=== PATIENT | female | born 1975 ===

== ENCOUNTER 2020-05-01 12:23 | Outpatient (REF) | payer OTHER, SELFPAY | END 2020-05-01 12:24 | disposition home or self-care (01) | LOC: HO.LAB 12:23 | PROVIDERS: PCP Internal Medicine; Visit Provider Internal Medicine | DX: Z20.822 Contact with and (suspected) exposure to COVID-19 (principal) | CPT/HCPCS: 36415; C9803; U0003 ==

== ENCOUNTER 2020-07-24 11:11 | Outpatient (REF) | payer OTHER, SELFPAY ==
--- NOTE | ~2020-07-24 | XR_ITS ---
EXAMINATION: XR CHEST CLINICAL INFORMATION: Covid infection COMPARISON: None TECHNIQUE: 2 views of the chest were obtained. FINDINGS: No significant abnormality is noted involving the heart, lungs, mediastinum, bony thorax or soft tissues. XR/XR chest 2V IMPRESSION: Unremarkable examination.
--- NOTE | 2020-07-24 11:36 | ECG_ITS ---
Test Reason : SOB Blood Pressure : / mmHG Vent. Rate : 070 BPM Atrial Rate : 070 BPM P-R Int : 130 ms QRS Dur : 092 ms QT Int : 392 ms P-R-T Axes : 016 034 037 degrees QTc Int : 423 ms Normal sinus rhythm Normal ECG When compared with ECG of 09-FEB-2018 13:16, No significant change was found Referred By: Jhonny Carvalho Electronically Signed By:Scott Cruz
[2020-07-24 12:04] LABS: MANUAL DIFF FLAG NO
[2020-07-24 12:13] LABS: Basophils Percent Auto 0.7 % (0-2); Eosinophils Absolute Auto 0.1 X10*3/uL (0.0-0.4); Eosinophils Percent Auto 2.5 % (0-4); Hemoglobin 11.7 g/dl (12.0-16.0); Imm Gran Abs Auto 0.03 X10*3/uL (0.00-0.03); Imm Gran Pct Auto 0.5 % (0.0-0.4); Lymphocytes Absolute Auto 1.4 X10*3/uL (1.2-4.9); Lymphocytes Percent Auto 24.3 % (20-40); Mean Corpuscular HGB Conc 32.5 g/dl (31.0-35.0); Mean Corpuscular Hemoglobin 31.8 pg (27.0-33.0); Mean Corpuscular Volume 97.8 fL (80-98); Mean Platelet Volume 10.1 fL (9.4-12.3); Monocytes Absolute Auto 0.3 X10*3/uL (0.1-1.2); Monocytes Percent Auto 5.7 % (2-11); Neutrophils Absolute Auto 3.7 X10*3/uL (2.0-8.3); Neutrophils Percent Auto 66.3 % (45-73); Platelet Count 230 X10*3/uL (160-400); Red Blood Count 3.68 X10*6/uL (4.20-5.50); Red Cell Distribution Width 12.4 % (11.0-16.0); White Blood Count 5.6 X10*3/uL (4.8-10.8)
[2020-07-24 13:51] LABS: Anion Gap 11 (12-20); Blood Urea Nitrogen 14 mg/dL (9-16); Calcium 9.2 mg/dL (8.4-10.2); Carbon Dioxide 26 mmol/L (22-29); Chloride 106 mmol/L (96-108); Estimated Glomerular Filt Rate > 60; Glucose Random 104 mg/dL (60-115); Potassium 4.4 mmol/L (3.3-5.1); Sodium 139 mmol/L (135-145)
[2020-07-24 14:14] LABS: Thyroid Stimulating Hormone 0.89 uIU/mL (0.32-4.0)
== END 2020-07-24 11:12 | disposition home or self-care (01) ==
LOC: HO.LAB 11:11
PROVIDERS: PCP Internal Medicine; Visit Provider Internal Medicine
DX: Z00.00 Encounter for general adult medical examination without abnormal findings (principal); R06.02 Shortness of breath; E03.9 Hypothyroidism, unspecified; R51.9 Headache, unspecified; U07.1 COVID-19
CPT/HCPCS: 36415; 71046; 80048; 84443; 85025; 93005

== ENCOUNTER → 2020-08-14 11:39 | Outpatient (BNVA) | payer OTHER, SELFPAY | PROVIDERS: PCP Internal Medicine; Visit Provider Advanced Practice Midwife ==

== ENCOUNTER 2020-08-27 10:38 | Outpatient (REF) | payer OTHER, SELFPAY ==
[2020-08-28 08:57] LABS: BV Int Neg Control Negative (Negative); BV Int Pos Control Positive (Positive)
[2020-08-28 09:00] LABS: CT PCR NOT DETECTED (Not Detect.); NG PCR NOT DETECTED (Not Detect.)
== END 2020-08-27 10:39 | disposition home or self-care (01) ==
LOC: HO.LAB 10:38
PROVIDERS: PCP Internal Medicine; Visit Provider Advanced Practice Midwife
DX: Z01.419 Encounter for gynecological examination (general) (routine) without abnormal findings (principal); Z11.3 Encounter for screening for infections with a predominantly sexual mode of transmission; R10.2 Pelvic and perineal pain; K59.00 Constipation, unspecified; B00.9 Herpesviral infection, unspecified; Z20.2 Contact with and (suspected) exposure to infections with a predominantly sexual mode of transmission
CPT/HCPCS: 87480; 87491; 87510; 87591; 87660

== ENCOUNTER 2020-09-04 15:54 | Outpatient (REF) | payer OTHER, SELFPAY ==
--- NOTE | ~2020-09-04 | US_ITS ---
EXAMINATION:US pelvic and transvaginal CLINICAL INFORMATION: Reason for Exam N85.2 - Hypertrophy of uterus COMPARISON: No prior ultrasound available. LMP: 08/05/2020 FINDINGS: UTERUS: The uterus is anteverted. Size: 8.4 x 4.2 x 6.4 cm. Uterine mass: Small intramural uterine mass likely fibroid 7 x 5 x 9 mm. Cervix: Grossly unremarkable. Endometrium: No ultrasound evidence of endometrial lesion. endometrial thickness measures 1.1 cm ADNEXA: Normal Right ovary: Normal in size. Cystic structure in the right ovary 2.1 cm likely dominant follicle. Left ovary: Normal in size. Doppler exam: Normal Doppler flow identified in both ovaries. FREE FLUID: Trace amount of free fluid. OTHER FINDINGS: None US/US pelvic and transvaginal IMPRESSION: Small intramural subcentimeter mass likely fibroid. 2.1 cm cystic structure in the right ovary most likely physiologic dominant follicle.
--- NOTE | ~2020-09-04 | XR_ITS ---
EXAMINATION: XR CHEST CLINICAL INFORMATION: COVID-19. COMPARISON: Most recent chest radiograph dated 07/24/2020. TECHNIQUE: 2 views of the chest were obtained. FINDINGS: The lungs are clear. The cardiomediastinal silhouette is normal in size. There is no pleural effusion or pneumothorax. No acute osseous abnormality. XR/XR chest 2V IMPRESSION: No acute cardiopulmonary findings.
== END 2020-09-04 15:55 | disposition home or self-care (01) ==
LOC: HO.US 15:54
PROVIDERS: Visit Provider Advanced Practice Midwife
DX: R10.2 Pelvic and perineal pain (principal); N85.2 Hypertrophy of uterus; U07.1 COVID-19
CPT/HCPCS: 71046; 76830; 76856

== ENCOUNTER → 2020-09-24 10:03 | Outpatient (BNVA) | payer OTHER, SELFPAY | PROVIDERS: PCP Internal Medicine; Visit Provider Advanced Practice Midwife ==

== ENCOUNTER 2020-11-24 12:35 | Outpatient (REF) | payer OTHER, SELFPAY ==
--- NOTE | ~2020-11-24 | US_ITS ---
EXAMINATION: US ABDOMEN COMPLETE CLINICAL INFORMATION: Abdominal pain.. COMPARISON: None TECHNIQUE: Real-time imaging of the abdominal viscera. FINDINGS: PANCREAS: Normal. ABDOMINAL AORTA: The proximal, mid, and distal segments are normal in caliber. INFERIOR VENA CAVA: Visualized portions are normal. LIVER: The liver is normal in size. The liver contour is normal. Parenchymal echogenicity is normal. There is an anechoic cyst with septations in the left hepatic lobe measuring 0.8 x 0.6 x 0.8 cm. A small cyst in the right hepatic lobe measures 1.3 x 0.9 x 0.7 cm.. There is no intrahepatic biliary duct dilatation seen. GALLBLADDER: Normal. The gallbladder is physiologically distended without evidence of stones, sludge, polyps, wall thickening or pericholecystic fluid. COMMON BILE DUCT: Normal in caliber measuring 0.5 cm in diameter. RIGHT KIDNEY: There is mild hydronephrosis.. No renal calculi or focal parenchymal lesions. The kidney measures 12.1 cm in maximum dimension. LEFT KIDNEY: Normal. No hydronephrosis. No renal calculi or focal parenchymal lesions. The kidney measures 11.1 cm in maximum dimension. SPLEEN: Normal. The spleen measures 11.5 cm in maximum dimension. FREE FLUID: None. Limited imaging through the pelvis reveals a normal left ureteral jet. The right ureteral jet is not seen. US/US abdomen complete IMPRESSION: There is a left hepatic lobe cyst with septation and a simple right hepatic lobe cyst. No solid lesions seen. There is mild right hydronephrosis of unknown etiology with absent right ureteral jet in the bladder. Rest of the abdominal ultrasound is unremarkable.
--- NOTE | ~2020-11-24 | XR_ITS ---
EXAMINATION: XR ABDOMEN KUB CLINICAL INDICATION: Abdominal pain COMPARISON: None TECHNIQUE: AP view of the abdomen. FINDINGS: The bowel gas pattern is normal with no evidence of ileus or obstruction. There is a moderate volume of stool throughout the colon. No unusual soft tissue calcifications are noted. The bones are unremarkable. XR/XR KUB IMPRESSION: Unremarkable examination.
[2020-11-24 14:16] LABS: MANUAL DIFF FLAG NO
[2020-11-24 14:30] LABS: Basophils Percent Auto 0.5 % (0-2); Eosinophils Absolute Auto 0.2 X10*3/uL (0.0-0.4); Eosinophils Percent Auto 3.8 % (0-4); Hematocrit 36.6 % (37-47); Hemoglobin 11.7 g/dl (12.0-16.0); Imm Gran Abs Auto 0.03 X10*3/uL (0.00-0.03); Imm Gran Pct Auto 0.5 % (0.0-0.4); Lymphocytes Absolute Auto 1.5 X10*3/uL (1.2-4.9); Lymphocytes Percent Auto 26.9 % (20-40); Mean Corpuscular Hemoglobin 30.7 pg (27.0-33.0); Mean Corpuscular Volume 96.1 fL (80-98); Mean Platelet Volume 10.4 fL (9.4-12.3); Monocytes Absolute Auto 0.3 X10*3/uL (0.1-1.2); Monocytes Percent Auto 5.6 % (2-11); Neutrophils Absolute Auto 3.5 X10*3/uL (2.0-8.3); Neutrophils Percent Auto 62.7 % (45-73); Platelet Count 252 X10*3/uL (160-400); Red Blood Count 3.81 X10*6/uL (4.20-5.50); Red Cell Distribution Width 12.2 % (11.0-16.0); White Blood Count 5.5 X10*3/uL (4.8-10.8)
[2020-11-24 14:40] LABS: Alanine Aminotransferase 10 U/L (0-31); Alkaline Phosphatase 57 U/L (39-117); Anion Gap 11 (12-20); Aspartate Amino Transferase 11 U/L (5-31); Bilirubin Total 0.5 mg/dL (0.0-1.0); Blood Urea Nitrogen 11 mg/dL (9-16); Carbon Dioxide 24 mmol/L (22-29); Chloride 110 mmol/L (96-108); Cholesterol 180 mg/dL; Estimated Glomerular Filt Rate > 60; Glucose Fasting 102 mg/dL (60-99); HDL Cholesterol 45 mg/dL; LDL Cholesterol Calculated 113 mg/dl; Potassium 4.3 mmol/L (3.3-5.1); Sodium 141 mmol/L (135-145); Total Protein 6.5 g/dL (6.5-8.0); Triglycerides 113 mg/dL
[2020-11-24 15:00] LABS: Thyroid Stimulating Hormone 1.06 uIU/mL (0.32-4.0)
== END 2020-11-24 12:36 | disposition home or self-care (01) ==
LOC: HO.XRAY 12:35
PROVIDERS: Absent Provider Internal Medicine; PCP Internal Medicine; Visit Provider Nurse Practitioner Family
DX: Z00.00 Encounter for general adult medical examination without abnormal findings (principal); R10.9 Unspecified abdominal pain; E03.9 Hypothyroidism, unspecified; E11.9 Type 2 diabetes mellitus without complications
CPT/HCPCS: 36415; 74018; 76700; 80053; 80061; 84443; 85025

== ENCOUNTER 2021-04-17 13:41 | Outpatient (REF) | payer OTHER, SELFPAY ==
[2021-04-17 13:59] LABS: MANUAL DIFF FLAG NO
[2021-04-17 14:15] LABS: Basophils Percent Auto 0.6 % (0-2); Eosinophils Absolute Auto 0.2 X10*3/uL (0.0-0.4); Eosinophils Percent Auto 4.2 % (0-4); Imm Gran Abs Auto 0.02 X10*3/uL (0.00-0.03); Imm Gran Pct Auto 0.4 % (0.0-0.4); Lymphocytes Absolute Auto 1.4 X10*3/uL (1.2-4.9); Lymphocytes Percent Auto 30.3 % (20-40); Mean Corpuscular HGB Conc 32.4 g/dl (31.0-35.0); Mean Corpuscular Hemoglobin 31.9 pg (27.0-33.0); Mean Corpuscular Volume 98.4 fL (80.0-98.0); Mean Platelet Volume 9.6 fL (9.4-12.3); Monocytes Absolute Auto 0.3 X10*3/uL (0.1-1.2); Monocytes Percent Auto 5.7 % (2-11); Neutrophils Absolute Auto 2.8 x10*3/uL (2.0-8.3); Neutrophils Percent Auto 58.8 % (45-73); Platelet Count 228 X10*3/uL (160-400); Red Blood Count 3.76 X10*6/uL (4.20-5.50); Red Cell Distribution Width 12.3 % (11.0-16.0); White Blood Count 4.7 X10*3/uL (4.8-10.8)
[2021-04-17 14:57] LABS: Alanine Aminotransferase 22 U/L (0-31); Albumin Level 4.1 g/dL (3.5-5.0); Alkaline Phosphatase 64 U/L (39-117); Anion Gap 9 (12-20); Aspartate Amino Transferase 18 U/L (5-31); Bilirubin Total 0.4 mg/dL (0.0-1.0); Blood Urea Nitrogen 15 mg/dL (9-16); Carbon Dioxide 22 mmol/L (22-29); Chloride 111 mmol/L (96-108); Cholesterol 211 mg/dL; Estimated Glomerular Filt Rate > 60; Glucose Fasting 95 mg/dL (60-99); HDL Cholesterol 50 mg/dL; LDL Cholesterol Calculated 148 mg/dl; Sodium 138 mmol/L (135-145); Total Protein 6.8 g/dL (6.5-8.0); Triglycerides 68 mg/dL
[2021-04-17 15:11] LABS: Thyroid Stimulating Hormone 0.86 uIU/mL (0.32-4.0)
== END 2021-04-17 13:42 | disposition home or self-care (01) ==
LOC: HO.LAB 13:41
PROVIDERS: PCP Internal Medicine; Visit Provider Internal Medicine
DX: Z00.00 Encounter for general adult medical examination without abnormal findings (principal); Z13.0 Encounter for screening for diseases of the blood and blood-forming organs and certain disorders involving the immune mechanism; Z13.29 Encounter for screening for other suspected endocrine disorder
CPT/HCPCS: 36415; 80053; 80061; 84443; 85025

== ENCOUNTER → 2021-04-30 13:03 | Outpatient (BNVA) | payer OTHER, SELFPAY | PROVIDERS: PCP Internal Medicine | DX: N20.0 Calculus of kidney (principal) | CPT/HCPCS: 51798; 99202 ==

== ENCOUNTER 2021-06-17 11:58 | Outpatient (REF) | payer OTHER, SELFPAY ==
--- NOTE | ~2021-06-17 | US_ITS ---
EXAMINATION: US RETROPERITONEAL LIMITED (RENAL ONLY) CLINICAL INFORMATION: Calculus of kidney. COMPARISON: X-ray abdomen KUB 11/24/2020. Ultrasound abdomen complete 11/24/2020. Renal ultrasound 07/06/2010. TECHNIQUE: Real-time imaging of the kidneys. FINDINGS: RIGHT KIDNEY: 12.8 x 5.3 x 7.0 cm (SAG x AP x TRV). The kidney is normal in size, contour, and echogenicity. Renal cortical thickness is normal. No calculi or focal parenchymal lesions. There is what appears to be mild pelvocaliectasis, slightly increased from prior. In addition, there is a dilated right renal pelvis present which appears more prominent than previous. No hydronephrosis. LEFT KIDNEY: 10.7 x 4.3 x 5.2 cm (SAG x AP x TRV). The kidney is normal in size, contour, and echogenicity. Renal cortical thickness is normal. No calculi or focal parenchymal lesions. No hydronephrosis. The partially filled bladder appeared unremarkable. Left ureteral jet is demonstrated; right is not. The nonvisualization of the right ureteral jet has been noted in the past. US/US renal BI IMPRESSION: Question of mild right-sided hydronephrosis with increased dilatation of right renal pelvis. The possibility of obstruction cannot be excluded. A CT urogram may be useful for further evaluation. No renal calculi were seen on this study nor were any seen on any prior studies.
== END 2021-06-17 11:59 | disposition home or self-care (01) ==
LOC: HO.US 11:58
DX: N20.0 Calculus of kidney (principal)
CPT/HCPCS: 76775

== ENCOUNTER 2021-11-10 10:00 | Outpatient (RCR) | payer OTHER, SELFPAY ==
[2021-11-05 14:06] VITALS: BP 136/74; PULSE 77
--- NOTE | 2021-11-05 15:14 | MHC.PT.EP ---
[facility] [place] Office [place] [facility] [place] Office [address] Willian Joaquin [address] [phone] F: [phone] F: [phone] F: [phone] F: [phone] Physical Therapy Plan of Care Date of Evaluation: Date of Surgery: Diagnosis: dizziness and giddiness Assessment: 46 y/o female referred to PT with dizziness and giddiness. She has a x of BPPV starting 1 year ago and has had 4 episodes since. Her most recent episode started 2 days ago resulting in room-spinning dizziness and n/v that lasts ~1 minute. It is provoked with rolling in bed and moving her head. Of note, she feels offbalance and 'sore' head. Examination shows normal oculomotor exams, normal cervical AROM, (-) VBI, balance not assessed, and (+) for BPPV in R Melanie Hallpike (sx only; Roll test presented with R PC and L Roll test presented with L AC). Performed Zach for R PC x 3 rolls. Next visit, if her sx have not resolved will perform Semont Maneuver. Recommend PT 3x/week for 4 weeks to address impairments, implement HEP, and optimize functional mobility. Frequency and Duration: The patient will be seen 3x/week for 4 weeks Short Term Goals: I with HEP Care Home Goals: Pt will be (-) for nystagmus of reports of vertigo in all diagnostic directions B to resolutions of BPPV in 4 weeks Tolerate position changes without complaints vertigo to improve safety and return to pre-onset level Pt to be able to functionally move in all planes without provocation of dizziness and return to PLOF in 4 weeks Pt to be educated on sx and indications to return to therapy when needed in 4 weeks Treatment Plan: Modalities to reduce pain, spasms and effusion. Manual therapy to restore motion and function. Therapeutic exercise to improve strength and flexibility. Neuromuscular re-education for posture and balance. Therapeutic activities to return to functional activities of daily living. Electronically signed by: Anabelle Frederick PT Please sign and return to therapist. Thank you for your referral.
[2021-11-10 10:32] LABS: MANUAL DIFF FLAG NO
[2021-11-10 10:48] LABS: Basophils Percent Auto 0.5 % (0-2); Eosinophils Absolute Auto 0.2 X10*3/uL (0.0-0.4); Eosinophils Percent Auto 2.6 % (0-4); Hematocrit 35.4 % (37.0-47.0); Hemoglobin 11.6 g/dl (12.0-16.0); Imm Gran Abs Auto 0.03 X10*3/uL (0.00-0.03); Imm Gran Pct Auto 0.5 % (0.0-0.4); Lymphocytes Absolute Auto 1.2 X10*3/uL (1.2-4.9); Lymphocytes Percent Auto 21.2 % (20-40); Mean Corpuscular HGB Conc 32.8 g/dl (31.0-35.0); Mean Corpuscular Volume 97.8 fL (80.0-98.0); Mean Platelet Volume 9.6 fL (9.4-12.3); Monocytes Absolute Auto 0.3 X10*3/uL (0.1-1.2); Monocytes Percent Auto 5.1 % (2-11); Neutrophils Percent Auto 70.1 % (45-73); Platelet Count 218 X10*3/uL (160-400); Red Blood Count 3.62 X10*6/uL (4.20-5.50); Red Cell Distribution Width 12.8 % (11.0-16.0); White Blood Count 5.7 X10*3/uL (4.8-10.8)
[2021-11-10 11:27] LABS: Alanine Aminotransferase 18 U/L (0-31); Albumin Level 4.2 g/dL (3.5-5.0); Alkaline Phosphatase 65 U/L (39-117); Anion Gap 13 (12-20); Aspartate Amino Transferase 17 U/L (5-31); Bilirubin Total 0.4 mg/dL (0.0-1.0); Blood Urea Nitrogen 14 mg/dL (9-16); Carbon Dioxide 25 mmol/L (22-29); Chloride 105 mmol/L (96-108); Cholesterol 198 mg/dL; Estimated Glomerular Filt Rate > 60; Glucose Fasting 115 mg/dL (60-99); HDL Cholesterol 46 mg/dL; LDL Cholesterol Calculated 133 mg/dl; Potassium 4.3 mmol/L (3.3-5.1); Sodium 139 mmol/L (135-145); Total Protein 6.7 g/dL (6.5-8.0); Triglycerides 96 mg/dL
[2021-11-10 11:51] LABS: Thyroid Stimulating Hormone 1.13 uIU/mL (0.32-4.0)
--- NOTE | 2021-12-29 08:19 | MHC.PT.DC ---
[facility] [place] Office [place] Office [place] Office [address] Willian Joaquin [address] [phone] F: [phone] F: [phone] F: [phone] F: [phone] Physical Therapy Discharge Report Diagnosis: dizziness and giddiness Date of Surgery: Date of Evaluation: 11/05/21 Date of Discharge: 12/29/21 Treatments to Date: 3 Cancellations to Date: 0 No Shows to Date: Discharge Status: Achieved Goals Improved Function Discharge Summary: Last session, her dizziness had resolved and she tested negative for BPPV with balance WNL. D/c at this time and re-educated pt on when to return to PT in case of recurrence of vertigo. Electronically signed by: Anabelle Frederick PT Please sign and return to therapist. Thank you for your referral.
== END 2021-12-29 08:19 | disposition home or self-care (01) ==
LOC: HO.PT 10:00
PROVIDERS: Visit Provider Internal Medicine
DX: R42 Dizziness and giddiness (principal)
CPT/HCPCS: 36415; 80053; 80061; 84443; 85025; 95992; 97112; 97161

== ENCOUNTER → 2021-11-16 14:21 | Outpatient (BNVA) | payer OTHER, SELFPAY | PROVIDERS: PCP Internal Medicine; Visit Provider Surgery | DX: R93.0 Abnormal findings on diagnostic imaging of skull and head, not elsewhere classified (principal); L72.8 Other follicular cysts of the skin and subcutaneous tissue | CPT/HCPCS: 99202 ==

== ENCOUNTER 2021-12-14 16:11 | Outpatient (REF) | payer OTHER, SELFPAY ==
[2021-12-18 03:51] LABS: HPV mRNA E6/E7 rflx Not Detected (Not Detected)
== END 2021-12-14 16:12 | disposition home or self-care (01) ==
LOC: HO.LNP 16:11
PROVIDERS: Visit Provider Advanced Practice Midwife
DX: Z01.419 Encounter for gynecological examination (general) (routine) without abnormal findings (principal)
CPT/HCPCS: 87624; 88142

== ENCOUNTER 2022-01-12 10:17 | Outpatient (REF) | payer OTHER, SELFPAY ==
--- NOTE | ~2022-01-12 | MM_ITS ---
EXAMINATION: MM SCREENING DIGITAL BREAST TOMOSYNTHESIS, BILATERAL CLINICAL INFORMATION: Screening. Asymptomatic. The lifetime risk of breast cancer based on the Tyrer-Cuzick Model is 8%. COMPARISON: Mammography: 10/31/2019, 10/25/2019, 07/26/2018, 07/06/2010; targeted left breast ultrasound 10/31/2019 TECHNIQUE: Digital breast tomosynthesis is performed in both the craniocaudal and mediolateral oblique views along with computer-aided detection (CAD). Synthesized 2D images are generated from the tomosynthesis. Additional exaggerated right CC view is provided. FINDINGS: The breasts are heterogeneously dense, which may obscure small masses (ACR BI-RADS breast composition Category c). Parenchymal pattern is similar to prior studies. There is no developing density or architectural abnormality. Small circumscribed cyst mid outer left breast is slightly decreased. No abnormal calcifications. The axilla and skin contours are unremarkable. No significant changes. MM/MM tomosynthesis screening BI IMPRESSION: No mammographic evidence of malignancy. ASSESSMENT: BI-RADS 2: Benign RECOMMENDATION: Routine annual mammography screening. This patient's information was entered into a reminder system with a target due date for their next mammogram.
== END 2022-01-12 10:18 | disposition home or self-care (01) ==
LOC: HO.MAMMO 10:17
PROVIDERS: PCP Internal Medicine; Visit Provider Advanced Practice Midwife
DX: Z12.31 Encounter for screening mammogram for malignant neoplasm of breast (principal)
CPT/HCPCS: 77063; 77067

== ENCOUNTER 2022-05-24 17:07 | Outpatient (REF) | payer OTHER, SELFPAY ==
[2022-05-25 08:59] LABS: Follicle Stimulating Hormone 15.5 mIU/mL; Lutenizing Hormone 9.6 mIU/mL
[2022-05-25 09:14] LABS: Lyme Abs Screen <0.90 index
== END 2022-05-24 17:08 | disposition home or self-care (01) ==
LOC: HO.LAB 17:07
PROVIDERS: PCP Internal Medicine; Visit Provider Internal Medicine
DX: T14.8XXA Other injury of unspecified body region, initial encounter (principal); W57.XXXA Bitten or stung by nonvenomous insect and other nonvenomous arthropods, initial encounter; Z78.0 Asymptomatic menopausal state
CPT/HCPCS: 36415; 83001; 83002; 86617; 86618

== ENCOUNTER 2022-09-09 12:23 | Outpatient (REF) | payer OTHER, SELFPAY ==
[2022-09-09 12:31] LABS: MANUAL DIFF FLAG NO
[2022-09-09 13:37] LABS: Basophils Absolute Auto 0.1 X10*3/uL (0.0-0.2); Basophils Percent Auto 0.7 % (0-2); Eosinophils Absolute Auto 0.1 X10*3/uL (0.0-0.4); Eosinophils Percent Auto 1.2 % (0-4); Hematocrit 34.7 % (37.0-47.0); Hemoglobin 11.3 g/dl (12.0-16.0); Imm Gran Abs Auto 0.02 X10*3/uL (0.00-0.03); Imm Gran Pct Auto 0.3 % (0.0-0.4); Lymphocytes Absolute Auto 1.6 X10*3/uL (1.2-4.9); Lymphocytes Percent Auto 23.7 % (20-40); Mean Corpuscular HGB Conc 32.6 g/dl (31.0-35.0); Mean Corpuscular Hemoglobin 31.2 pg (27.0-33.0); Mean Corpuscular Volume 95.9 fL (80.0-98.0); Mean Platelet Volume 10.4 fL (9.4-12.3); Monocytes Absolute Auto 0.4 X10*3/uL (0.1-1.2); Monocytes Percent Auto 5.2 % (2-11); Neutrophils Absolute Auto 4.7 x10*3/uL (2.0-8.3); Neutrophils Percent Auto 68.9 % (45-73); Platelet Count 211 X10*3/uL (160-400); Red Blood Count 3.62 X10*6/uL (4.20-5.50); Red Cell Distribution Width 12.5 % (11.0-16.0); White Blood Count 6.8 X10*3/uL (4.8-10.8)
[2022-09-09 14:05] LABS: Alanine Aminotransferase 16 U/L (0-31); Albumin Level 4.3 g/dL (3.5-5.0); Alkaline Phosphatase 73 U/L (39-117); Anion Gap 9 (12-20); Aspartate Amino Transferase 16 U/L (5-31); Bilirubin Total 0.5 mg/dL (0.0-1.0); Blood Urea Nitrogen 12 mg/dL (9-16); Calcium 9.2 mg/dL (8.4-10.2); Carbon Dioxide 26 mmol/L (22-29); Chloride 108 mmol/L (96-108); Cholesterol 204 mg/dL; Estimated Glomerular Filt Rate > 60; Glucose Fasting 94 mg/dL (60-99); HDL Cholesterol 49 mg/dL; LDL Cholesterol Calculated 136 mg/dl; Potassium 4.2 mmol/L (3.3-5.1); Sodium 139 mmol/L (135-145); Total Protein 6.8 g/dL (6.5-8.0); Triglycerides 96 mg/dL
[2022-09-09 14:21] LABS: Thyroid Stimulating Hormone 1.15 uIU/mL (0.32-4.0)
== END 2022-09-09 12:24 | disposition home or self-care (01) ==
LOC: HO.LAB 12:23
PROVIDERS: PCP Internal Medicine; Visit Provider Internal Medicine
DX: E78.5 Hyperlipidemia, unspecified (principal); D64.9 Anemia, unspecified; N28.9 Disorder of kidney and ureter, unspecified; E03.9 Hypothyroidism, unspecified
CPT/HCPCS: 36415; 80053; 80061; 84443; 85025

== ENCOUNTER 2022-12-17 15:07 | Outpatient (AMB) | payer OTHER, SELFPAY ==
[2022-12-17 15:08] VITALS: BP 130/84; BMI 26.3
--- NOTE | 2022-12-17 15:08 | MHC.OFFVIS ---
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 She does want to talk however she has some challenges She found out some years ago that her had given her herpes and later found out that he had been cheating and they were . He is currently with a new partner and they are friends now she has decided to forgive him but she can not forget and she has a new , fiance now that she lives with, who was an old friend that she reconnected with, and while she is not particularly worried about any STIs and has been with him for the past year she finds herself unable to sleep at night and feeling like she has some things crawling on her skin and she can not quite relax. She relayed this story in connection with having been given herpes by her so it seemed like there might be connection with that. She also requested a refill on the Valcyclovir She has been doing intermittent fasting and so she eats her healthy meal around 06:00 o'clock she only has coffee during the day when her last coffee is around 02:00 o'clock. She does her workout in the evening on a treadmill along with other exercises and then when she tries to go to bed around 930 even if she is trying to get to bed on time she is lying there with her eyes open and cannot close them for hours. Sometimes she gets up and wants to do things like fold all the laundry in the bedroom. But then when she goes to sleep she still cannot sleep and she is falling asleep at 05:30 in the morning and and she is tired during the day. I suggested counseling or therapy to see if she can explore the issues that are disturbing her sleep but she is not interested in that at this time though she did find speaking about it in this visit like she got something off of her chest. I did suggest changing her exercise timing to earlier in the day and perhaps stopping coffee earlier in the day as well. Additionally I shared that sometimes experts have talked about the benefits of writing down the things that 1 is anxious about in a book and then closing that book before bedtime and acknowledging that 1 can deal with the issues the next day. Additionally discussed the possible benefits of additional magnesium and calcium. She stop drinking milk so she probably needs some extra calcium as well. She had her mammogram last year and they told her that her breasts were dense and so she is concerned about that but she has her next 1 scheduled for January. She says that she talked about all these issues with her primary care provider as well.. Discussed that any other future discussions about what to do about sleep might involve seeking expert advice and sleep studies. Additionally talked about having a screen free bed room. Additionally as per my original suggestion, sometimes speaking with a therapist or counselor can be useful to in helping get to the other side of issues that are worrying us and interfering with sleep. FORMERLY [facility], [facility]–1983 Medical History Renal calculi Liver cyst Anxiety Hypertension Kidney stones Well woman exam with routine gynecological exam Acid reflux Palpitation Abdominal migraine Low back pain Sinusitis COVID-19 Surgical History Hx of cystoscopy History of tubal ligation History of pubovaginal sling Family History Mother No problems noted. Father No problems noted. Social History Housing: House Alcohol intake: current Alcohol intake frequency: holidays/special occasions only Alcohol type: wine Patient Tobacco Use Status: Never used Tobacco e-Cigarette/Vaping Use: Never Used Second Hand Smoke Exposure: No service: No Current occupational status: employed Current occupational exposures/hazards: No Gender identity: Female Cognitive needs: No Hearing needs: No Vision needs: No Female Reproductive History Menstrual Age of Menarche: 13 Duration of menses: 3-5 days Date of last menstrual period: 12/16/22 control method: other (tubal ligation) Total pregnancies: 4 Full term: 4 Number of Living Children: 4 Date of last pap smear: 12/15/21 (negative) Date of Mammogram: 01/12/22 Physical Exam Vital Signs: Last Vital Signs BP 130/84 12/17/22 15:08 BMI result Body Mass Index 26.3 Const General: healthy appearing, comfortable, no acute distress, well developed and alert Nutritional Appearance: average body habitus Orientation/consciousness: patient oriented x3 Limitations: no limitations HEENT Head: Yes normocephalic Neck Neck: Yes normal visual inspection Thyroid: Thyroid normal Chest Chest palpation & inspection: normal inspection of the chest Breast/axilla inspection: normal inspection of the breasts and normal inspection of the axillae Breast/axilla palpation: normal palpation of the breasts and normal palpation of the axillae Resp Effort & Inspection: normal respiratory effort GI Inspection: Yes normal to inspection, No Abdominal wall edema and No distended Palpation (GI): Soft to palpation and nontender Neuro General: patient oriented x3 Assessment & Plan Assessment & Plan (1) Recurrent HSV (herpes simplex virus): Code(s): B00.9 - Herpesviral infection, unspecified (2) Well woman exam (no gynecological exam): Code(s): Z00.00 - Encounter for general adult medical examination without abnormal findings Plan 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 She does want to talk however she has some challenges She found out some years ago that her had given her herpes and later found out that he had been cheating and they were . He is currently with a new partner and they are friends now she has decided to forgive him but she can not forget and she has a new , fiance now that she lives with, who was an old friend that she reconnected with, and while she is not particularly worried about any STIs and has been with him for the past year she finds herself unable to sleep at night and feeling like she has some things crawling on her skin and she can not quite relax. She relayed this story in connection with having been given herpes by her so it seemed like there might be connection with that. She also requested a refill on the Valcyclovir She has been doing intermittent fasting and so she eats her healthy meal around 06:00 o'clock she only has coffee during the day when her last coffee is around 02:00 o'clock. She does her workout in the evening on a treadmill along with other exercises and then when she tries to go to bed around 930 even if she is trying to get to bed on time she is lying there with her eyes open and cannot close them for hours. Sometimes she gets up and wants to do things like fold all the laundry in the bedroom. But then when she goes to sleep she still cannot sleep and she is falling asleep at 05:30 in the morning and and she is tired during the day. I suggested counseling or therapy to see if she can explore the issues that are disturbing her sleep but she is not interested in that at this time though she did find speaking about it in this visit like she got something off of her chest. I did suggest changing her exercise timing to earlier in the day and perhaps stopping coffee earlier in the day as well. Additionally I shared that sometimes experts have talked about the benefits of writing down the things that 1 is anxious about in a book and then closing that book before bedtime and acknowledging that 1 can deal with the issues the next day. Additionally discussed the possible benefits of additional magnesium and calcium. She stop drinking milk so she probably needs some extra calcium as well. She had her mammogram last year and they told her that her breasts were dense and so she is concerned about that but she has her next 1 scheduled for January. She says that she talked about all these issues with her primary care provider as well.. Discussed that any other future discussions about what to do about sleep might involve seeking expert advice and sleep studies. Additionally talked about having a screen free bed room. Additionally as per my original suggestion, sometimes speaking with a therapist or counselor can be useful to in helping get to the other side of issues that are worrying us and interfering with sleep. Medications: Refilled valacyclovir 1,000 mg PO DAILY 90 tabs 4RF Coding Level of Care Code Est Pt Prev Care 40-64y(61267) Diagnoses Recurrent HSV (herpes simplex virus) B00.9 Well woman exam (no gynecological exam) Z00.00
== END 2022-12-17 15:58 | disposition home or self-care (01) ==
PROVIDERS: Visit Provider Advanced Practice Midwife
DX: Z01.419 Encounter for gynecological examination (general) (routine) without abnormal findings (principal); Z86.19 Personal history of other infectious and parasitic diseases
CPT/HCPCS: 99396

== ENCOUNTER → 2022-12-17 15:07 | Outpatient (BNVA) | payer OTHER, SELFPAY | PROVIDERS: Visit Provider Advanced Practice Midwife | DX: Z01.419 Encounter for gynecological examination (general) (routine) without abnormal findings (principal); B00.9 Herpesviral infection, unspecified | CPT/HCPCS: 99396 ==

== ENCOUNTER 2023-01-12 13:39 | Outpatient (AMB) | payer OTHER, SELFPAY ==
--- NOTE | 2023-01-12 13:40 | A.OFFPC_ITS ---
Vital Signs 01/12/23 13:42 Height 5 ft 7 in Weight 171 lb BMI 26.8 BP 144/80 H Blood Pressure Location Lt brachial Position Sitting Pulse 93 Pulse Source Pulse Oximeter Pulse Oximetry (%) 99 Oxygen Delivery Method Room Air Intake Visit Reasons: right side back pain Allergies No Known Allergies Allergy (Mild, Verified 01/12/23 13:42) NKA Medication List - Last Reconciled 01/12/23 by Jhonny Carvalho MD diazepam 5 mg PO DAILY PRN ibuprofen 600 mg PO Q8H PRN lisinopril-hydrochlorothiazide 10-12.5 mg 1 tab PO DAILY loratadine 10 mg PO DAILY meclizine 25 mg PO TID PRN naproxen (Naprosyn) 500 mg PO BID PRN omeprazole 20 mg PO DAILY sulfamethoxazole-trimethoprim 800-160 mg (Bactrim DS) 1 tab PO BID PRN 5 days sumatriptan succinate 50 mg PO; triamcinolone acetonide 0.5% 1 appl topical DAILY valacyclovir 1,000 mg PO DAILY Tobacco use date assessed: 06/08/22 Dental Screening Dental Screen Date: 01/12/23 Did you have a dental visit in the last 12 months?: Yes Did you have a dental problem in the last 6 months where you did not have access to dental care?: No Was dental information given to patient?: Patient has dentist HPI right side back pain HPI Details RUQ pain n/v for a week PFSH Medical History Renal calculi Liver cyst Anxiety Hypertension Kidney stones Well woman exam with routine gynecological exam Acid reflux Palpitation Abdominal migraine Low back pain Sinusitis COVID-19 Surgical History Hx of cystoscopy History of tubal ligation History of pubovaginal sling Family History Mother No problems noted. Father No problems noted. Social History Housing: House Alcohol intake: current Alcohol intake frequency: holidays/special occasions only Alcohol type: wine Patient Tobacco Use Status: Never used Tobacco e-Cigarette/Vaping Use: Never Used Second Hand Smoke Exposure: No service: No Current occupational status: employed Current occupational exposures/hazards: No Gender identity: Female Cognitive needs: No Hearing needs: No Vision needs: No Female Reproductive History Menstrual Age of Menarche: 13 Questionnaire PHQ-9 Over the last 2 weeks, how often have you been bothered by any of the following problems? 1. Little interest or pleasure in doing things: not at all 2. Feeling down, depressed, or hopeless: not at all 3. Trouble falling or staying asleep, or sleeping too much: not at all 4. Feeling tired or having little energy: not at all 5. Poor appetite or overeating: not at all 6. Feeling bad about yourself - or that you are a failure or have let yourself or your family down: not at all 7. Trouble concentrating on things, such as reading the newspaper or watching television: not at all 8. Moving or speaking so slowly that other people could have noticed. Or the opp osite - being so fidgety or restless that you have been moving around a lot more than usual: not at all 9. Thoughts that you would be better off or of hurting yourself in some way: not at all Total score: 0 Depression Screening Interpretation: Negative Depression Screening Done: Yes Source: Developed by Drs. Rickey Ellis, Hussein Morley and colleagues, with an educational you from [employer]. Thrive Questionnaire Date Thrive assessed: 06/08/22 AUDIT C Alcohol Use Questionnaire (AUDIT-C) 1. How often do you have a drink containing alcohol?: 2-4 times a month 2. How many drinks containing alcohol do you have on a typical day when you are drinking?: 1 or 2 3. How often do you have six or more drinks on one occasion?: Never Total Score: 2 Score Reviewed/Action Taken: Yes AFRICA-7 AMB Questionnaire AFRICA-7 Date AFRICA - 7 assessed: 06/08/22 Source: Developed by Drs. Rickey Ellis, Hussein Morley and colleagues, with an educational you from [employer]. Review of Systems Const Denies chills, Denies headache(s) and Denies weight loss ENT Denies headache(s) Card Denies chest pain, Denies syncope, Denies irregular heart rhythm and Denies dyspnea Resp Denies chest congestion, Denies cough and Denies dyspnea GI Reports abdominal pain, Denies change in stool character, Reports nausea and Reports vomiting Musc Denies deformity and Denies joint swelling Neuro Denies syncope and Denies headache(s) Physical exam (Primary Care) Vital Signs: Last Vital Signs Pulse 93 01/12/23 13:42 BP 144/80 H 01/12/23 13:42 Pulse Ox 99 01/12/23 13:42 Oxygen Delivery Method Room Air 01/12/23 13:42 BMI result Body Mass Index 26.8 Tobacco/Smoking Status: Tobacco use Status Tobacco use date assessed 06/08/22 01/12/23 13:44 Patient Tobacco Use Status Never used Tobacco 01/12/23 13:44 e-Cigarette/Vaping Use Never Used 01/12/23 13:44 PHQ-9: PHQ-9 Score PHQ-9: Total score 0 01/12/23 13:44 Depression Screening Interpretation: Negative Thrive Assessment: Date of Thrive Assessment Date Thrive assessed 06/08/22 01/12/23 13:44 Const General: cooperative, comfortable, no acute distress and alert Neck Neck: Yes no lymphadenopathy Thyroid: Thyroid normal Resp Effort & Inspection: normal respiratory effort Auscultation: clear to auscultation bilaterally Percussion: percussion normal Cardio Jugular venous distension: no JVD Palpation: normal PMI Rate: regular rate Rhythm: regular rhythm Heart sounds: S1 normal heart sound present and S2 normal heart sound present GI Inspection: Yes normal to inspection Palpation (GI): No hepatosplenomegaly present Skin General skin exam: no rashes or lesions noted Extrem General: Yes no clubbing, cyanosis or edema Assessment and Plan Assessment & Plan (1) Abdominal pain: Code(s): R10.9 - Unspecified abdominal pain Plan: labs and us; rx Orders: Orders Comprehensive [place]. Panel Fast Today N28.9 - Disorder of kidney and ureter, unspecified Thyroid Stimulating Hormone Today E03.9 - Hypothyroidism, unspecified US abdomen complete Today R10.9 - Unspecified abdominal pain Complete Blood Count Auto Diff Today D64.9 - Anemia, unspecified UA and rflx microscopic Today N39.0 - Urinary tract infection, site not specified Medications: New omeprazole 20 mg PO DAILY 60 caps 3RF sulfamethoxazole-trimethoprim 800-160 mg (Bactrim DS) 1 tab PO BID PRN 10 tabs 0RF uti 5 days Refilled loratadine 10 mg PO DAILY 90 tabs 8RF Coding Level of Care Code Est Pt Level 3 (33246) Diagnoses Abdominal pain R10.9
[2023-01-12 13:42] VITALS: BP 144/80; PULSE 93; O2SAT 99; BMI 26.8
== END 2023-01-12 13:58 | disposition home or self-care (01) ==
PROVIDERS: PCP Internal Medicine; Visit Provider Internal Medicine
DX: R10.9 Unspecified abdominal pain (principal)
CPT/HCPCS: 99213

== ENCOUNTER → 2023-01-18 10:00 | Outpatient (BNV) | payer OTHER, SELFPAY | PROVIDERS: PCP Internal Medicine; Visit Provider Radiology Diagnostic Radiology | DX: Z12.31 Encounter for screening mammogram for malignant neoplasm of breast (principal) | CPT/HCPCS: 77063; 77067 ==

== ENCOUNTER 2023-01-18 10:08 | Outpatient (REF) | payer OTHER, SELFPAY | END 2023-01-18 10:09 | disposition home or self-care (01) | LOC: HO.MAMMO 10:08 | PROVIDERS: PCP Internal Medicine; Visit Provider Internal Medicine | DX: Z12.31 Encounter for screening mammogram for malignant neoplasm of breast (principal) | CPT/HCPCS: 77063; 77067 ==

== ENCOUNTER 2023-01-25 08:44 | Outpatient (REF) | payer OTHER, SELFPAY ==
--- NOTE | ~2023-01-25 | US_ITS ---
EXAMINATION: US ABDOMEN COMPLETE CLINICAL INFORMATION: Unspecified abdominal pain. COMPARISON: Renal ultrasound 06/17/2021. X-ray abdomen KUB 11/24/2020. Ultrasound abdomen complete 11/24/2020. TECHNIQUE: Real-time imaging of the abdominal viscera. FINDINGS: PANCREAS: Normal. ABDOMINAL AORTA: The proximal, mid, and distal segments are normal in caliber. INFERIOR VENA CAVA: Visualized portions are normal. LIVER: The liver is normal in size. The liver contour is normal. Parenchymal echogenicity is normal. 0.8 x 0.5 x 0.7 cm left and 1.2 x 1.3 x 1.1 cm right hepatic cysts are seen. There is no intrahepatic biliary duct dilatation seen. GALLBLADDER: Normal. The gallbladder is physiologically distended without evidence of stones, sludge, polyps, wall thickening or pericholecystic fluid. No tenderness elicited during study. COMMON BILE DUCT: Normal in caliber measuring 0.4 cm in diameter. RIGHT KIDNEY: No renal calculi or focal parenchymal lesions. The kidney measures 12.3 cm in maximum dimension. Unchanged mild right hydronephrosis and hydroureter to the UPJ. LEFT KIDNEY: Normal. No hydronephrosis. No renal calculi or focal parenchymal lesions. The kidney measures 10.7 cm in maximum dimension. SPLEEN: Normal. The spleen measures 11.0 cm in maximum dimension. FREE FLUID: None. ADDITIONAL FINDINGS: Urinary bladder was interrogated but limited in evaluation given nondistended state. Ureteral jets were not seen. US/US abdomen complete IMPRESSION: Chronic right hydroureteronephrosis to the UPJ. Nonvisualization bilateral ureteral jets. Hepatic cysts.
== END 2023-01-25 08:45 | disposition home or self-care (01) ==
LOC: HO.HMGCX 08:44
PROVIDERS: PCP Internal Medicine; Visit Provider Internal Medicine
DX: R10.9 Unspecified abdominal pain (principal)
CPT/HCPCS: 76700

== ENCOUNTER 2023-02-03 13:20 | Outpatient (REF) | payer OTHER, SELFPAY ==
[2023-02-03 13:32] LABS: MANUAL DIFF FLAG NO
[2023-02-03 13:50] LABS: Basophils Percent Auto 0.4 % (0-2); Eosinophils Absolute Auto 0.1 X10*3/uL (0.0-0.4); Hematocrit 34.7 % (37.0-47.0); Hemoglobin 11.6 g/dl (12.0-16.0); Imm Gran Abs Auto 0.03 X10*3/uL (0.00-0.03); Imm Gran Pct Auto 0.4 % (0.0-0.4); Lymphocytes Absolute Auto 1.8 X10*3/uL (1.2-4.9); Lymphocytes Percent Auto 24.9 % (20-40); Mean Corpuscular HGB Conc 33.4 g/dl (31.0-35.0); Mean Corpuscular Hemoglobin 31.3 pg (27.0-33.0); Mean Corpuscular Volume 93.5 fL (80.0-98.0); Mean Platelet Volume 9.6 fL (9.4-12.3); Monocytes Absolute Auto 0.3 X10*3/uL (0.1-1.2); Monocytes Percent Auto 4.1 % (2-11); Neutrophils Absolute Auto 4.9 x10*3/uL (2.0-8.3); Neutrophils Percent Auto 69.2 % (45-73); Platelet Count 221 X10*3/uL (160-400); Red Blood Count 3.71 X10*6/uL (4.20-5.50); Red Cell Distribution Width 12.2 % (11.0-16.0); White Blood Count 7.1 X10*3/uL (4.8-10.8)
[2023-02-03 14:38] LABS: Alanine Aminotransferase 10 U/L (0-31); Albumin Level 4.4 g/dL (3.5-5.0); Alkaline Phosphatase 61 U/L (39-117); Anion Gap 9 (12-20); Aspartate Amino Transferase 14 U/L (5-31); Bilirubin Total 0.4 mg/dL (0.0-1.0); Blood Urea Nitrogen 14 mg/dL (9-16); Calcium 9.1 mg/dL (8.4-10.2); Carbon Dioxide 24 mmol/L (22-29); Chloride 109 mmol/L (96-108); Estimated Glomerular Filt Rate > 60; Glucose Fasting 102 mg/dL (60-99); Sodium 138 mmol/L (135-145); Total Protein 7.3 g/dL (6.5-8.0)
[2023-02-03 14:53] LABS: Thyroid Stimulating Hormone 1.53 uIU/mL (0.32-4.0)
[2023-02-03 15:47] LABS: Appearance Urine Clear; Color Urine Yellow; Glucose Urine UA Negative (Negative); Leukocyte Esterase Urine Negative (Negative); Nitrite Urine Negative (Negative); PH 5.5 (5.0-9.0); Urine Blood Negative (Negative); Urine Ketones Negative (Negative); Urine Protein Negative (Neg-Trace)
== END 2023-02-03 13:21 | disposition home or self-care (01) ==
LOC: HO.LAB 13:20
PROVIDERS: PCP Internal Medicine; Visit Provider Internal Medicine
DX: D64.9 Anemia, unspecified (principal); N39.0 Urinary tract infection, site not specified; N28.9 Disorder of kidney and ureter, unspecified; E03.9 Hypothyroidism, unspecified
CPT/HCPCS: 36415; 80053; 81003; 84443; 85025

== ENCOUNTER 2023-02-07 13:37 | Outpatient (AMB) | payer OTHER, SELFPAY ==
[2023-02-07 13:40] VITALS: BP 134/62; PULSE 85; O2SAT 99; BMI 26.0
--- NOTE | 2023-02-07 13:40 | A.OFFPC_ITS ---
Vital Signs 02/07/23 13:40 Height 5 ft 7 in Weight 166 lb BMI 26.0 BP 134/62 Blood Pressure Location Lt brachial Position Sitting Pulse 85 Pulse Source Pulse Oximeter Pulse Oximetry (%) 99 Oxygen Delivery Method Room Air Intake Visit Reasons: Forehead Pressure/Soreness Under the Eyes Allergies No Known Allergies Allergy (Mild, Verified 01/12/23 13:42) NKA Tobacco use date assessed: 06/08/22 HPI Forehead Pressure/Soreness Under the Eyes HPI Details bilateral max sinus pressure PFSH Medical History Renal calculi Liver cyst Anxiety Hypertension Kidney stones Well woman exam with routine gynecological exam Acid reflux Palpitation Abdominal migraine Low back pain Sinusitis COVID-19 Surgical History Hx of cystoscopy History of tubal ligation History of pubovaginal sling Family History Mother No problems noted. Father No problems noted. Social History Housing: House Alcohol intake: current Alcohol intake frequency: holidays/special occasions only Alcohol type: wine Patient Tobacco Use Status: Never used Tobacco e-Cigarette/Vaping Use: Never Used Second Hand Smoke Exposure: No service: No Current occupational status: employed Current occupational exposures/hazards: No Gender identity: Female Cognitive needs: No Hearing needs: No Vision needs: No Female Reproductive History Menstrual Age of Menarche: 13 Questionnaire PHQ-9 Over the last 2 weeks, how often have you been bothered by any of the following problems? 1. Little interest or pleasure in doing things: not at all 2. Feeling down, depressed, or hopeless: not at all 3. Trouble falling or staying asleep, or sleeping too much: not at all 4. Feeling tired or having little energy: not at all 5. Poor appetite or overeating: not at all 6. Feeling bad about yourself - or that you are a failure or have let yourself or your family down: not at all 7. Trouble concentrating on things, such as reading the newspaper or watching television: not at all 8. Moving or speaking so slowly that other people could have noticed. Or the opposite - being so fidgety or restless that you have been moving around a lot more than usual: not at all 9. Thoughts that you would be better off or of hurting yourself in some way: not at all Total score: 0 Depression Screening Interpretation: Negative Depression Screening Done: Yes Source: Developed by Drs. Rickey Ellis, Diane De Jesus, Hussein Johnson and colleagues, with an educational you from [email or web address]. Thrive Questionnaire Date Thrive assessed: 06/08/22 AUDIT C Alcohol Use Questionnaire (AUDIT-C) 1. How often do you have a drink containing alcohol?: 2-4 times a month 2. How many drinks containing alcohol do you have on a typical day when you are drinking?: 1 or 2 3. How often do you have six or more drinks on one occasion?: Never Total Score: 2 Score Reviewed/Action Taken: Yes AFRICA-7 AMB Questionnaire AFRICA-7 Date AFRICA - 7 assessed: 06/08/22 Source: Developed by Drs. Rickey Ellis, Diane De Jesus, Hussein Johnson and colleagues, with an educational you from [email or web address]. Review of Systems Const Denies chills, Denies headache(s) and Denies weight loss ENT Denies headache(s) Card Denies chest pain, Denies syncope, Denies irregular heart rhythm and Denies dyspnea Resp Denies chest congestion, Denies cough and Denies dyspnea GI Denies abdominal pain, Denies change in stool character, Denies nausea and Denies vomiting Musc Denies deformity and Denies joint swelling Neuro Denies syncope and Denies headache(s) Physical exam (Primary Care) Vital Signs: Last Vital Signs Pulse 85 02/07/23 13:40 BP 134/62 02/07/23 13:40 Pulse Ox 99 02/07/23 13:40 Oxygen Delivery Method Room Air 02/07/23 13:40 BMI result Body Mass Index 26.0 Tobacco/Smoking Status: Tobacco use Status Tobacco use date assessed 06/08/22 02/07/23 13:44 Patient Tobacco Use Status Never used Tobacco 02/07/23 13:44 e-Cigarette/Vaping Use Never Used 02/07/23 13:44 PHQ-9: PHQ-9 Score PHQ-9: Total score 0 02/07/23 13:44 Depression Screening Interpretation: Negative Thrive Assessment: Date of Thrive Assessment Date Thrive assessed 06/08/22 02/07/23 13:44 Const General: cooperative, comfortable, no acute distress and alert Neck Neck: Yes no lymphadenopathy Thyroid: Thyroid normal Resp Effort & Inspection: normal respiratory effort Auscultation: clear to auscultation bilaterally Percussion: percussion normal Cardio Jugular venous distension: no JVD Palpation: normal PMI Rate: regular rate Rhythm: regular rhythm Heart sounds: S1 normal heart sound present and S2 normal heart sound present GI Inspection: Yes normal to inspection Palpation (GI): No hepatosplenomegaly present Skin General skin exam: no rashes or lesions noted Extrem General: Yes no clubbing, cyanosis or edema Assessment and Plan Assessment & Plan (1) Acute maxillary sinusitis: Code(s): J01.00 - Acute maxillary sinusitis, unspecified Plan: rx sent Medications: New azithromycin take 500 mg today (day 1), then 250 mg for 4 days (days 2-5) PO 6 tabs 0RF Coding Level of Care Code Est Pt Level 3 (48283) Diagnoses Acute maxillary sinusitis J01.00
== END 2023-02-07 13:53 | disposition home or self-care (01) ==
PROVIDERS: PCP Internal Medicine; Visit Provider Internal Medicine
DX: J01.00 Acute maxillary sinusitis, unspecified (principal)
CPT/HCPCS: 99213

== ENCOUNTER 2023-10-14 14:18 | Outpatient (REF) | payer OTHER, SELFPAY ==
[2023-10-14 14:29] LABS: MANUAL DIFF FLAG NO
[2023-10-14 14:59] LABS: Basophils Percent Auto 0.6 % (0-2); Eosinophils Absolute Auto 0.1 X10*3/uL (0.0-0.4); Eosinophils Percent Auto 2.1 % (0-4); Hematocrit 34.9 % (37.0-47.0); Hemoglobin 11.6 g/dl (12.0-16.0); Imm Gran Abs Auto 0.02 X10*3/uL (0.00-0.03); Imm Gran Pct Auto 0.3 % (0.0-0.4); Lymphocytes Absolute Auto 1.5 X10*3/uL (1.2-4.9); Lymphocytes Percent Auto 24.2 % (20-40); Mean Corpuscular HGB Conc 33.2 g/dl (31.0-35.0); Mean Corpuscular Hemoglobin 31.6 pg (27.0-33.0); Mean Corpuscular Volume 95.1 fL (80.0-98.0); Mean Platelet Volume 9.6 fL (9.4-12.3); Monocytes Absolute Auto 0.3 X10*3/uL (0.1-1.2); Monocytes Percent Auto 5.4 % (2-11); Neutrophils Absolute Auto 4.3 x10*3/uL (2.0-8.3); Neutrophils Percent Auto 67.4 % (45-73); Platelet Count 256 X10*3/uL (160-400); Red Blood Count 3.67 X10*6/uL (4.20-5.50); Red Cell Distribution Width 13.1 % (11.0-16.0); White Blood Count 6.3 X10*3/uL (4.8-10.8)
[2023-10-14 16:07] LABS: Alanine Aminotransferase 12 U/L (0-31); Albumin Level 4.1 g/dL (3.5-5.0); Alkaline Phosphatase 61 U/L (39-117); Anion Gap 9 (12-20); Aspartate Amino Transferase 16 U/L (5-31); Bilirubin Total 0.5 mg/dL (0.0-1.0); Blood Urea Nitrogen 11 mg/dL (9-16); Calcium 9.1 mg/dL (8.4-10.2); Carbon Dioxide 27 mmol/L (22-29); Chloride 107 mmol/L (96-108); Cholesterol 199 mg/dL (<200); Estimated Glomerular Filt Rate > 60; Glucose Fasting 100 mg/dL (60-99); HDL Cholesterol 52 mg/dL (>40); LDL Cholesterol Calculated 135 mg/dL (<100); Potassium 3.8 mmol/L (3.3-5.1); Sodium 139 mmol/L (135-145); Total Protein 6.9 g/dL (6.5-8.0); Triglycerides 61 mg/dL (<150)
== END 2023-10-14 14:19 | disposition home or self-care (01) ==
LOC: HO.LAB 14:18
PROVIDERS: PCP Internal Medicine; Visit Provider Internal Medicine
DX: Z13.29 Encounter for screening for other suspected endocrine disorder (principal); Z13.0 Encounter for screening for diseases of the blood and blood-forming organs and certain disorders involving the immune mechanism; Z13.9 Encounter for screening, unspecified; Z13.220 Encounter for screening for lipoid disorders
CPT/HCPCS: 36415; 80053; 80061; 84443; 85025

== ENCOUNTER 2023-10-24 13:48 | Outpatient (AMB) | payer OTHER, SELFPAY ==
--- NOTE | 2023-10-24 13:50 | A.OFFPC_ITS ---
Vital Signs 10/24/23 13:51 Height 5 ft 7 in Weight 161 lb BMI 25.2 BP 120/70 Blood Pressure Location Lt brachial Position Sitting Pulse 75 Pulse Source Pulse Oximeter Pulse Oximetry (%) 99 Oxygen Delivery Method Room Air Intake Visit Reasons: ANNUAL PE/HFU- NEEDS PHQ9 Transportation Attendant Required: No Social Work Lecturer: Not Required per policy Accompanied by: Self / Same As Patient Allergies No Known Allergies Allergy (Mild, Verified 10/24/23 13:51) NKA Medication List - Last Reconciled 10/25/23 by Jhonny Carvalho MD azithromycin take 500 mg today (day 1), then 250 mg for 4 days (days 2-5) PO diazepam 5 mg PO DAILY PRN ibuprofen 600 mg PO Q8H PRN lisinopril-hydrochlorothiazide 10-12.5 mg 1 tab PO DAILY loratadine 10 mg PO DAILY meclizine 25 mg PO TID PRN naproxen (Naprosyn) 500 mg PO BID PRN omeprazole 20 mg PO DAILY sulfamethoxazole-trimethoprim 800-160 mg (Bactrim DS) 1 tab PO BID PRN 5 days sumatriptan succinate 50 mg PO .QD PRN triamcinolone acetonide 0.5% 1 appl topical DAILY valacyclovir 1,000 mg PO DAILY Tobacco use date assessed: 10/24/23 Dental Screening Dental Screen Date: 10/24/23 Did you have a dental visit in the last 12 months?: Yes Did you have a dental problem in the last 6 months where you did not have access to dental care?: No Was dental information given to patient?: Patient has dentist HPI ANNUAL PE/HFU- NEEDS PHQ9 HPI Details anxiety; stable PFSH Medical History Renal calculi Liver cyst Anxiety Hypertension Kidney stones Well woman exam with routine gynecological exam Acid reflux Palpitation Abdominal migraine Low back pain Sinusitis COVID-19 Surgical History Hx of cystoscopy History of tubal ligation History of pubovaginal sling Family History Mother No problems noted. Father No problems noted. Social History (Reviewed 02/07/23 @ 13:40 by DON Hernandez Housing: House Alcohol intake: current Alcohol intake frequency: holidays/special occasions only Alcohol type: wine Patient Tobacco Use Status: Never used Tobacco e-Cigarette/Vaping Use: Never Used Second Hand Smoke Exposure: No service: No Current occupational status: employed Current occupational exposures/hazards: No Gender identity: Female Cognitive needs: No Hearing needs: No Vision needs: No Female Reproductive History Menstrual Age of Menarche: 13 Questionnaire PHQ-9 Over the last 2 weeks, how often have you been bothered by any of the following problems? 1. Little interest or pleasure in doing things: not at all 2. Feeling down, depressed, or hopeless: not at all 3. Trouble falling or staying asleep, or sleeping too much: not at all 4. Feeling tired or having little energy: not at all 5. Poor appetite or overeating: not at all 6. Feeling bad about yourself - or that you are a failure or have let yourself or your family down: not at all 7. Trouble concentrating on things, such as reading the newspaper or watching television: not at all 8. Moving or speaking so slowly that other people could have noticed. Or the opposite - being so fidgety or restless that you have been moving around a lot more than usual: not at all 9. Thoughts that you would be better off or of hurting yourself in some way: not at all Total score: 0 Depression Screening Interpretation: Negative Depression Screening Done: Yes Source: Developed by Drs. Rickey Ellis, Diane De Jesus, Hussein Johnson and colleagues, with an educational you from [employer]. Thrive Questionnaire Date Thrive assessed: 10/24/23 I am a: Patient What is your living situation today?: I have a steady place to live Within the past 12 months, did the food you bought not last and you didn't have the money to get more?: Never true Within the past 12 months, did you worry whether your food would run out before you got money to buy more?: Never true Do you have trouble paying for medicines?: No Do you have trouble getting transportation to medical appointments?: No Do you have trouble paying your heating and electricity bill?: No Do you have trouble taking care of your child, family member or friend?: No Do you have trouble with day-to-day activities such as bathing, preparing meals, shopping, managing finances, etc.?: No Are you currently unemployed and looking for a job?: No Are you interested in more education?: No Please select the resources that you would like help with: None THRIVE Score: 0 AUDIT C Alcohol Use Questionnaire (AUDIT-C) 1. How often do you have a drink containing alcohol?: 2-4 times a month 2. How many drinks containing alcohol do you have on a typical day when you are drinking?: 1 or 2 3. How often do you have six or more drinks on one occasion?: Never Total Score: 2 Score Reviewed/Action Taken: Yes AFRICA-7 AMB Questionnaire AFRICA-7 Date AFRICA - 7 assessed: 10/24/23 Feeling nervous, anxious, or on edge: 3 = Nearly every day Not being able to stop or control worryin = Several days Worrying too much about different things: 2 = More than half the days Trouble relaxin = More than half the days Being so restless that it is hard to sit still: 0 = Not at all Becoming easily annoyed or irritable: 2 = More than half the days Feeling afraid as if something awful might happen: 2 = More than half the days Total AFRICA-7 score (0-4 normal; 5-9 mild; 10-14 moderate; 15-21 severe): 12 Source: Developed by Drs. Rickey Ellis, Diane De Jesus, Hussein Johnson and colleagues, with an educational you from [employer]. Review of Systems Const Denies chills, Denies fatigue, Denies headache(s) and Denies weight loss Eyes Denies change in vision, Denies diplopia and Denies eye pain ENT Denies vertigo, Denies dizziness, Denies headache(s) and Denies nasal discharge Card Denies chest pain, Denies rapid heart rate and Denies dyspnea on exertion Resp Denies chest congestion, Denies cough, Denies pain with cough and Denies dyspnea on exertion GI Denies abdominal pain, Denies hematochezia and Denies change in bowel habits Musc Denies myalgias, Denies arthralgias and Denies joint swelling Skin/Breast Denies lesions and Denies unusual bruising Neuro Denies vertigo, Denies dizziness, Denies headache(s) and Denies focal weakness Endo Denies fatigue Physical exam (Primary Care) Vital Signs: Last Vital Signs Pulse 75 10/24/23 13:51 BP 120/70 10/24/23 13:51 Pulse Ox 99 10/24/23 13:51 Oxygen Delivery Method Room Air 10/24/23 13:51 BMI result Body Mass Index 25.2 Tobacco/Smoking Status: Tobacco use Status Tobacco use date assessed 10/24/23 10/24/23 13:56 Patient Tobacco Use Status Never used Tobacco 10/24/23 13:56 e-Cigarette/Vaping Use Never Used 10/24/23 13:56 PHQ-9: PHQ-9 Score PHQ-9: Total score 0 10/24/23 13:56 Depression Screening Interpretation: Negative Thrive Assessment: Date of Thrive Assessment Date Thrive assessed 10/24/23 10/24/23 13:56 Const General: cooperative, healthy appearing and no acute distress Orientation/consciousness: oriented to person, oriented to place and oriented to time HENMT Head: Yes normal to inspection, Yes normocephalic and Yes atraumatic Mouth: Normal oral and palatal mucosa present and tongue normal Throat: Yes posterior oropharynx normal and Yes uvula midline Eyes General: appearance normal, both eyes and all related structures Neck Neck: Yes normal visual inspection, Yes full ROM and Yes no lymphadenopathy Thyroid: Thyroid normal Carotids: normal carotid upstroke Chest Chest palpation & inspection: normal inspection of the chest Resp Effort & Inspection: normal respiratory effort and able to speak in complete sentences Auscultation: clear to auscultation bilaterally Cardio Jugular venous distension: no JVD Palpation: normal PMI Rate: regular rate Rhythm: regular rhythm Heart sounds: S1 normal heart sound present and S2 normal heart sound present GI Inspection: Yes normal to inspection Palpation (GI): Soft to palpation and No hepatosplenomegaly present Auscultation: normal bowel sounds General: Yes no CVA tenderness Back/Spine/Pelvis Back: no CVA tenderness Skin General skin exam: no rashes or lesions noted Neuro General: oriented to person, oriented to place and oriented to time Extrem General: Yes normal to inspection and Yes full ROM Assessment and Plan Assessment & Plan (1) Physical exam: Code(s): Z00.00 - Encounter for general adult medical examination without abnormal findings Plan: stable (2) Anxiety: Code(s): F41.9 - Anxiety disorder, unspecified Plan: stable; same rx Orders: Orders Vitamin D 25-OH Total 10/24/23 Z13.9 - Encounter for screening, unspecified Uric Acid 10/24/23 M10.9 - Gout, unspecified Erythrocyte Sedimentation Rate 10/24/23 M25.50 - Pain in unspecified joint, T50.Z95A - Adverse effect of other vaccines and biological substances, initial encounter Vitamin B12 10/24/23 R53.83 - Other fatigue Coding Level of Care Code Est Pt Prev Care 40-64y(39565) Diagnoses Physical exam Z00.00 Anxiety F41.9
[2023-10-24 13:51] VITALS: BP 120/70; PULSE 75; O2SAT 99; BMI 25.2
== END 2023-10-24 14:14 | disposition home or self-care (01) ==
PROVIDERS: PCP Internal Medicine; Visit Provider Internal Medicine
DX: Z00.00 Encounter for general adult medical examination without abnormal findings (principal); F41.9 Anxiety disorder, unspecified
CPT/HCPCS: 99396

== ENCOUNTER 2023-10-24 14:21 | Outpatient (REF) | payer OTHER, SELFPAY ==
[2023-10-24 16:13] LABS: Uric Acid 3.8 mg/dL (2.4-5.7)
[2023-10-24 16:30] LABS: Vitamin B12 1013 pg/mL (200-900)
== END 2023-10-24 14:22 | disposition home or self-care (01) ==
LOC: HO.LAB 14:21
PROVIDERS: PCP Internal Medicine; Visit Provider Internal Medicine
DX: M10.9 Gout, unspecified (principal); R53.83 Other fatigue; Z13.9 Encounter for screening, unspecified
CPT/HCPCS: 36415; 82306; 82607; 84550; 85652

== ENCOUNTER → 2024-01-24 10:00 | Outpatient (BNV) | payer OTHER, SELFPAY | PROVIDERS: PCP Internal Medicine; Visit Provider Internal Medicine | DX: Z12.31 Encounter for screening mammogram for malignant neoplasm of breast (principal) | CPT/HCPCS: 77063; 77067 ==

== ENCOUNTER 2024-01-24 10:02 | Outpatient (REF) | payer OTHER, SELFPAY ==
--- NOTE | ~2024-01-24 | MM_ITS ---
EXAMINATION: MM SCREENING DIGITAL BREAST TOMOSYNTHESIS, BILATERAL CLINICAL INFORMATION: Screening. Asymptomatic. COMPARISON: Mammography: Comparison is made with available priors TECHNIQUE: Digital breast mammography with tomosynthesis is performed in both the craniocaudal and mediolateral oblique views along with computer-aided detection (CAD). FINDINGS: The breasts are heterogeneously dense, which may obscure small masses (ACR BI-RADS breast composition Category c). There are no significant masses, abnormal calcifications, or other abnormalities. MM/MM tomosynthesis screening BI IMPRESSION: No mammographic evidence of malignancy. ASSESSMENT: BI-RADS BI-RADS 1 - Negative RECOMMENDATION: Routine annual mammography screening. 1 year F/U This examination should not preclude the clinical evaluation of a suspicious palpable abnormality. This patient's information was entered into a reminder system with a target due date for their next mammogram. Electronically signed by: Nemo Kathleen DO 02/03/2024 10:47 AM EDT
== END 2024-01-24 10:03 | disposition home or self-care (01) ==
LOC: HO.MAMMO 10:02
PROVIDERS: PCP Internal Medicine; Visit Provider Internal Medicine
DX: Z12.31 Encounter for screening mammogram for malignant neoplasm of breast (principal)
CPT/HCPCS: 77063; 77067

== ENCOUNTER 2024-02-07 10:21 | Outpatient (AMB) | payer OTHER, SELFPAY ==
[2024-02-07 10:29] VITALS: BP 126/78; BMI 26.0
--- NOTE | 2024-02-07 10:29 | A.OFFVIS_ITS ---
Vital Signs 02/07/24 10:29 Height 5 ft 7 in Weight 166 lb BMI 26.0 BP 126/78 Intake Visit Reasons: Vaginal Bleeding Mastic Floor Layer Required: No Information Interpreted: clinical only Coffee Attendant: Coffee Attendant Present Allergies No Known Allergies Allergy (Mild, Verified 02/07/24 10:29) NKA Medication List - Last Reconciled 02/07/24 by Jacklyn Selby CNM diazepam 5 mg PO DAILY PRN ibuprofen 600 mg PO Q8H PRN meclizine 25 mg PO TID PRN omeprazole 20 mg PO DAILY sumatriptan succinate 50 mg PO .QD PRN valacyclovir 1,000 mg PO DAILY Is last menstrual period known: Yes Last menstrual period: 02/03/24 Do you need a note to return to daycare/school/sports/work: No HPI HPI Vaginal Bleeding: Details: This is a problem visit arranged this morning patient had called the office message received yesterday that she was changing her tampon every hour to hour and a half and my recommendation was to go to the emergency room if it was that heavy but she did not wish to go she said that today it is not quite that heavy she is changing a pad about every 2 hours. She says she has a history of normal periods that last 4 days only and come every 28 days. She has a history of a tubal ligation 18 years ago so is not a concern. In December and January she had very different bleeding episodes. Previous menses are as follows November 03 through the . December 18 through the very heavy. January 10 through the very heavy. And then this bleeding started again February 02 and is cited as heavy though getting a little bit better today. 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 [facility] Medical History Renal calculi Liver cyst Anxiety Hypertension Kidney stones Well woman exam with routine gynecological exam Acid reflux Palpitation Abdominal migraine Low back pain Sinusitis COVID-19 Surgical History Hx of cystoscopy History of tubal ligation History of pubovaginal sling Family History Mother No problems noted. Father No problems noted. Social History Housing: House Alcohol intake: current Alcohol intake frequency: holidays/special occasions only Alcohol type: wine Patient Tobacco Use Status: Never used Tobacco e-Cigarette/Vaping Use: Never Used Second Hand Smoke Exposure: No service: No Current occupational status: employed Current occupational exposures/hazards: No Gender identity: Female Cognitive needs: No Hearing needs: No Vision needs: No Female Reproductive History Menstrual Age of Menarche: 13 Duration of menses: other Date of last menstrual period: 02/03/24 control method: permanent sterilization Total pregnancies: 4 Full term: 4 Date of last pap smear: 12/15/21 (negative) Physical Exam Vital Signs: Last Vital Signs BP 126/78 02/07/24 10:29 BMI result Body Mass Index 26.0 Other: evidence of heavy bleeding, appears to be slowing. no clots coming through os. Bleeding is bright red continuous trickling not pouring out but huge puddlle underneath her buttocks every time she sits on a new pad on the exam table, Cervix multiparous pink smooth with heavy bleeding as noted. Uterus is small to medium size firm mobile anteverted nontender no masses appreciated. Please see procedure section for description of endometrial biopsy and Mirena insertion which both went smoothly 5 passes of EMB Pipelle yielded fairly bloody sample. External Female Exam: normal external appearance Speculum Exam - Vagina: normal appearance of the vagina, normal palpation and vaginal bleeding Speculum Exam - Cervix: normal appearance of the cervix and normal palpation Bimanual exam- vagina & uterus: normal bimanual exam, normal palpation, uterine size normal, consistency normal, normal palpation, uterine mobility normal, uterine shape normal and non-tender Bimanual Exam- Adnexa, other: normal adnexae, normal and No adnexal tenderness OB/external & speculum: vaginal bleeding Office Procedures Endometrial Biopsy Details: Patient is here very heavy bleeding and decision has been made that she needs an endometrial biopsy. I explained the procedure and what the goal of the obtaining the sample is, and why we need need to do it today. Patient signed consent form, and appropriate testing was done beforehand. test is negative Patient was placed in recumbent position. Speculum was placed to visualize cervix the cervix was cleansed with Betadine. A tenaculum was gently placed to straighten the axis. The uterus was sounded to 9 cm. The endometrial biopsy Pipelle was inserted gently, and withdrawn to obtain sampling of the endometrial tissue for 5 passes. the cervix was swabbed gently.. The patient tolerated well though found it uncomfortable each time the internal os was passed. Specimen appeared quite bloody. Decision had previously been discussed about placing a Mirena IU S to treat her menorrhagia procedure then switch to Mirena insertion. 32122-Zscwjxksxcm Biopsy IUD Insert/Removal Details Details: ---Patient is here for with very heavy bleeding endometrial biopsy has just been done and decision has been made to treat heavy bleeding with Mirena IU S insertion. Bimanual exam was done. Her uterus is firm, nontender, and appropriate sized, and is anteverted . The cervix was swabbed with Betadine, as noted in EMB section Tenaculum was already on cervix for the endometrial biopsy. Uterus was already sounded to 9 cm. The IUD was removed from its package, after checking identifying information and lot dates and expiration dates and and gently inserted into the os, as per the IUD insertion procedure. The strings were then trimmed to 3-4 centimetres. The tenaculum was removed and gentle pressure applied with a swab, until any bleeding subsided from the tenaculum sites. The speculum was gently removed. The patient sat up. I Reviewed what to expect, and what indications would necessitate a call. Pt to call for fever, untoward pain or cramping. Pt to return for recheck as scheduled. Patient is to go now to the hospital lab for labs as a we will be done more quickly they are then at the [facility] site and stat order has been placed for ultrasound and I will see her for follow-up 1 week or less. 00381-OIB Insertion Procedure code (CPT) selection complete Office Meds Mirena 21 mcg/24 hr (up to 8 years) 52 mg intrauterine device Performing Provider: Jacklyn Selby CNM [facility] Administered by: Joanna Hdez CMA on 02/07/24 12:08 Dose Route Admin Location Dispensed Lot Number Expiration Date [facility] [employer] Sciences Manager 1 device intrauterine 1 ea [id number] 01/31/26 Results Reviewed Results Reviewed: Patient: Agatha Gonzalez MR#: [id number] : 1975 Acct:[id number] Age/Sex: 45 / F ADM Date: 09/04/20 Loc: .[place] Attending Dr: Jacklyn Selby CNM Ordering Physician: Jacklyn Selby CNM Date of Service: 09/04/20 Procedure(s): US pelvic and transvaginal Accession Number(s): [id number] cc: Jacklyn Selby CNM~ EXAMINATION:US pelvic and transvaginal CLINICAL INFORMATION: Reason for Exam N85.2 - Hypertrophy of uterus COMPARISON: No prior ultrasound available. LMP: 08/05/2020 FINDINGS: UTERUS: The uterus is anteverted. Size: 8.4 x 4.2 x 6.4 cm. Uterine mass: Small intramural uterine mass likely fibroid 7 x 5 x 9 mm. Cervix: Grossly unremarkable. Endometrium: No ultrasound evidence of endometrial lesion. endometrial thickness measures 1.1 cm ADNEXA: Normal Right ovary: Normal in size. Cystic structure in the right ovary 2.1 cm likely dominant follicle. Left ovary: Normal in size. Doppler exam: Normal Doppler flow identified in both ovaries. FREE FLUID: Trace amount of free fluid. OTHER FINDINGS: None US/US pelvic and transvaginal IMPRESSION: Small intramural subcentimeter mass likely fibroid. 2.1 cm cystic structure in the right ovary most likely physiologic dominant follicle. Dictated By: ДМИТРИЙ CARTER MD Signed By: <Electronically signed by ДМИТРИЙ CARTER MD in OV> 09/05/20 1605 DD/ 1612 TD/TT: Dry Sander: HS Name: Agatha Patino Age/Sex: 48/F : 1975 [id number]#: [id number] Attend Dr: Jhonny Carvalho MD Re10/14/23 Status: DEP [facility] SPEC : [id number] BERNARDA: 10/14/23 STATUS: COMP REQ : [id number] RECD: 10/14/23 [facility] DR: Jhonny Carvalho MD COMP: 10/14/23 ENTERED: 10/14/[address] [facility] [address]: ORDERED: CBC Auto Diff Test Result Flag Reference WBC 6.3 4.8-10.8 X10*3/uL RBC 3.67 L 4.20-5.50 X10*6/uL HGB 11.6 L 12.0-16.0 g/dl HCT 34.9 L 37.0-47.0 % MCV 95.1 80.0-98.0 fL MCH 31.6 27.0-33.0 pg MCHC 33.2 31.0-35.0 g/dl RDW 13.1 11.0-16.0 % PLT 256 160-400 X10*3/uL MPV 9.6 9.4-12.3 fL Neut Pct Auto 67.4 45-73 % ImGran Pct Auto 0.3 0.0-0.4 % Lymp Pct Auto 24.2 20-40 % Culberson Pct Auto 5.4 2-11 % Eos Pct Auto 2.1 0-4 % Baso Pct Auto 0.6 0-2 % NRBC Pct Auto 0.0 0.0-0.2 /100WBC ANC Neut Abs # 4.3 2.0-8.3 x10*3/uL ImGran Abs Auto 0.02 0.00-0.03 X10*3/uL Lymph Abs Auto 1.5 1.2-4.9 X10*3/uL Culberson Abs Auto 0.3 0.1-1.2 X10*3/uL Eos Abs Auto 0.1 0.0-0.4 X10*3/uL Baso Abs Auto 0.0 0.0-0.2 X10*3/uL NRBC Abs Auto 0.000 0.0-0.012 X10*3/uL END OF REPORT TSH 10/2023 equals 0.70. Name: Agatha Patino Age/Sex: 46/F Attending: Jacklyn Selby CNM : 1975 Submitted by: Jacklyn Selby CNM Copies to: MR #: [id number] Status: DEP REF Collected: 12/14/21 Location: [facility] Received: 12/15/21 Interpretation Satisfactory for evaluation. No endocervical cells seen. Blood. Negative for intraepithelial lesion or malignancy. HPV mRNA E6/E7: NOT DETECTED This assay detects E6/E7 viral messenger RNA (mRNA) from 14 high-risk HPV types (16, 18, 31, 33, 35, 39, 45, 51, 52, 56, 58, 59, 66, 68) HPV testing performed by [employer], [place], [place]. See reference laboratory pion of the EMR for entire report. Clinical Information LMP: 11/29/21 Previous PAP test: 07/19/18, WNL Material Received ThinPrep-Cervical Electronically Signed By: DAGOBERTO Daley (ASCP) 12/28/21 1012 The Pap Test is a screening procedure with the inherent possibility of both false negative and false positive results. Results should be interpreted in the context of historic and current clinical findings. Reliability of the Pap Test is enhanced by performing the test on a regular repetitive basis. Patient: Agatha Patino Age/Sex: 46/F [id number] MR#: [id number] Page 1 of 1 Assessment & Plan Assessment & Plan (1) Menorrhagia: Code(s): N92.0 - Excessive and frequent menstruation with regular cycle Category: Medical Plan Review plan with Dr. Watters. Patient is bleeding very heavily we will do endometrial biopsy and Mirena IU S can be located will place if unable to place or Mirena IU S is not available will treat with Provera 10 mg q.day for 30 days, reviewed the plan with the patient will proceed to endometrial biopsy now. reviewed the risks. also reviewed that the bleeding is substantial and does need to be dealt with urgently,. Patient does not appear pale, but if she is severely anemic, then we will send her to the emergency room for transfusion as well. See procedure section; -- endometrial biopsy was done. -- Patient then had insertion of Mirena IU S. patient is to go to the hospital lab now on her way home to get CBC and other labs. Ultrasound has been ordered stat and patient will go home and await call back for the ultrasound. We will see the patient in 1 week or less, reviewed reasons why she would need to seek more urgent care. I am expecting the slow down under the effects of the levonorgestrel. If she is severely anemic, she will be instructed to go the emergency room for transfusion. she does not appear excessively pale or hypovolemic so I do not expect that we will need this. I reviewed signs and symptoms of infection and other reasons that would need emergent care . Orders: Orders TSH reflex Free T4 Today N93.9 - Abnormal uterine and vaginal bleeding, unspecified Follicle Stimulating Hormone Today N93.9 - Abnormal uterine and vaginal bleeding, unspecified HCG Quantitative Today N93.9 - Abnormal uterine and vaginal bleeding, unspecified US pelvic and transvaginal Today N92.0 - Excessive and frequent menstruation with regular cycle CT NG by PCR Today N89.8 - Other specified noninflammatory disorders of vagina Surgical Today N93.9 - Abnormal uterine and vaginal bleeding, unspecified Lutenizing Hormone Today N93.9 - Abnormal uterine and vaginal bleeding, unspecified Complete Blood Count no Diff Today N93.9 - Abnormal uterine and vaginal bleeding, unspecified Bacterial Vaginosis Panel Today N89.8 - Other specified noninflammatory disorders of vagina AMB Endometrial Biopsy Today N92.0 - Excessive and frequent menstruation with regular cycle AMB IUD Insertion/Removal - Practice Supplied Today N92.0 - Excessive and frequent menstruation with regular cycle Coding Level of Care Code Est Pt Level 4 (52826) Diagnoses Menorrhagia N92.0 CPT Codes Endometrial Biopsy - CPT: 90482-Gshbttburzt Biopsy ([id number]) Details - CPT: 79268-URG Insertion ([id number])
== END 2024-02-07 15:16 | disposition home or self-care (01) ==
PROVIDERS: PCP Internal Medicine; Visit Provider Advanced Practice Midwife
DX: N92.0 Excessive and frequent menstruation with regular cycle (principal); Z30.430 Encounter for insertion of intrauterine contraceptive device; Z32.02 Encounter for pregnancy test, result negative
CPT/HCPCS: 58100; 58300; 99214

== ENCOUNTER 2024-02-07 10:21 | Outpatient (REF) | payer OTHER, SELFPAY ==
--- NOTE | ~2024-02-07 | US_ITS ---
EXAMINATION: US PELVIS CLINICAL INFORMATION: Excessive menorrhagia status post IUD placement today COMPARISON: September 04, 2020 TECHNIQUE: Ultrasound of the pelvis is performed using both transabdominal and transvaginal transducers along with Doppler. Transvaginal imaging is performed due to inadequate visualization transabdominally. FINDINGS: Uterus: The uterus is anteverted, retroflexed and measures 9.0 x 4.1 x 5.5 cm. There is 0.7 x 0.6 x 0.7 cm uterine fibroid in the body, unchanged since the previous study. The double wall endometrial thickness is 0.8 mm. There is IUD in good position Adnexa: Both ovaries are visualized. There is normal color flow to the adnexa. There is no ovarian torsion. There is no pelvic ascites or fluid collection. There is septated 6.6 x 3.9 x 7.5 cm cyst in left ovary breast visualized transabdominal Right ovary measures 2.9 x 1.2 x 1.4 cm. With a volume of 2.1 mL Left ovary measures 7.0 x 4.2 x 8.0 cm. With a volume of 123.15 mL There is no fluid in cul-de-sac US/US pelvic and transvaginal IMPRESSION: IUD in good position. Large septated cyst in left ovary Electronically signed by: Mirian Sousa MD 02/08/2024 12:14 PM [facility]
[2024-02-07 15:03] LABS: Hemoglobin 11.4 g/dl (12.0-16.0); Mean Corpuscular HGB Conc 33.5 g/dl (31.0-35.0); Mean Corpuscular Hemoglobin 31.9 pg (27.0-33.0); Mean Corpuscular Volume 95.2 fL (80.0-98.0); Mean Platelet Volume 9.8 fL (9.4-12.3); Platelet Count 249 X10*3/uL (160-400); Red Blood Count 3.57 X10*6/uL (4.20-5.50); Red Cell Distribution Width 12.3 % (11.0-16.0); White Blood Count 5.9 X10*3/uL (4.8-10.8)
[2024-02-07 15:47] LABS: HCG Quantitative < 2 mIU/mL
[2024-02-08 06:59] LABS: Follicle Stimulating Hormone 14.5 mIU/mL; Lutenizing Hormone 8.8 mIU/mL
[2024-02-08 11:39] LABS: Bacterial Vaginosis PCR NEGATIVE (Negative); Candida Group PCR NOT DETECTED (Not Detect); Candida glab krusei PCR NOT DETECTED (Not Detect); Trichomonas vaginalis PCR NOT DETECTED (Not Detect)
[2024-02-08 12:08] LABS: CT PCR NOT DETECTED (Not Detect.); NG PCR NOT DETECTED (Not Detect.)
== END 2024-02-07 10:22 | disposition home or self-care (01) ==
LOC: HO.LAB 10:21
PROVIDERS: PCP Internal Medicine; Visit Provider Advanced Practice Midwife
DX: N92.0 Excessive and frequent menstruation with regular cycle (principal); N93.9 Abnormal uterine and vaginal bleeding, unspecified; N89.8 Other specified noninflammatory disorders of vagina; Z30.430 Encounter for insertion of intrauterine contraceptive device
CPT/HCPCS: 0352U; 58100; 58300; 76830; 76856; 81025; 83001; 83002; 84443; 84702; 85027; 87491; 87591; 99212; J7298

== ENCOUNTER 2024-02-07 12:01 | Outpatient (REF) | payer OTHER, SELFPAY | END 2024-02-07 12:02 | disposition home or self-care (01) | LOC: HO.LNP 12:01 | PROVIDERS: Visit Provider Advanced Practice Midwife | DX: N93.9 Abnormal uterine and vaginal bleeding, unspecified (principal) | CPT/HCPCS: 88305 ==

== ENCOUNTER 2024-02-15 10:03 | Outpatient (AMB) | payer OTHER, SELFPAY ==
[2024-02-15 10:08] VITALS: BP 112/70; BMI 26.0
--- NOTE | 2024-02-15 10:08 | A.OFFVIS_ITS ---
Vital Signs 02/15/24 10:08 Height 5 ft 7 in Weight 166 lb BMI 26.0 BP 112/70 Intake Visit Reasons: stat US f/u Associate Designer Required: No Information Interpreted: clinical only Emergency Department Manager: Emergency Department Manager Present Allergies No Known Allergies Allergy (Mild, Verified 02/15/24 10:10) NKA Is last menstrual period known: Yes Last menstrual period: 02/03/24 HPI HPI stat US f/u: Details: Patient is here for follow-up from last week's urgent visit where she had an EMB in a Mirena placed for menorrhagia. In addition patient has been complaining that her bleeding had not stopped yet though it is better today and she had called with complaint of very bad migraines that were not responding to her medication. She has a history of migraines for years has medication that she ta kes she needs to, she is photosensitive. She also tells me she has had chills a couple of times. 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 [facility] Medical History Renal calculi Liver cyst Anxiety Hypertension Kidney stones Well woman exam with routine gynecological exam Acid reflux Palpitation Abdominal migraine Low back pain Sinusitis COVID-19 Surgical History Hx of cystoscopy History of tubal ligation History of pubovaginal sling Family History Mother No problems noted. Father No problems noted. Social History Housing: House Alcohol intake: current Alcohol intake frequency: holidays/special occasions only Alcohol type: wine Patient Tobacco Use Status: Never used Tobacco e-Cigarette/Vaping Use: Never Used Second Hand Smoke Exposure: No service: No Current occupational status: employed Current occupational exposures/hazards: No Gender identity: Female Cognitive needs: No Hearing needs: No Vision needs: No Female Reproductive History Menstrual Age of Menarche: 13 Duration of menses: other Date of last menstrual period: 02/03/24 control method: progestin IUCD and permanent sterilization Total pregnancies: 4 Full term: 4 Date of last pap smear: 12/15/21 (negative) Physical Exam Vital Signs: Last Vital Signs BP 112/70 02/15/24 10:08 BMI result Body Mass Index 26.0 Other: Dark red blood noted still. cervix is multiparous closed with Mirena string easily visible uterus is nontender midposition to anteverted cervix is nontender adnexa nontender patient is very slightly tender in her bladder area. The bleeding is moderate, somewhat reduced from last week. Results Reviewed Results Reviewed: Patient: Agatha Patino MR#: [id number] : 1975 Acct:[id number] Age/Sex: 49 / F ADM Date: 02/07/24 Loc: HO.LAB Attending Dr: Jacklyn Selby CNM Ordering Physician: Jacklyn Selby CNM Date of Service: 02/07/24 Procedure(s): US pelvic and transvaginal Accession Number(s): [id number] cc: Jhonny Carvalho MD; Jacklyn Selby CNM~ EXAMINATION: US PELVIS CLINICAL INFORMATION: Excessive menorrhagia status post IUD placement today COMPARISON: September 04, 2020 TECHNIQUE: Ultrasound of the pelvis is performed using both transabdominal and transvaginal transducers along with Doppler. Transvaginal imaging is performed due to inadequate visualization transabdominally. FINDINGS: Uterus: The uterus is anteverted, retroflexed and measures 9.0 x 4.1 x 5.5 cm. There is 0.7 x 0.6 x 0.7 cm uterine fibroid in the body, unchanged since the previous study. The double wall endometrial thickness is 0.8 mm. There is IUD in good position Adnexa: Both ovaries are visualized. There is normal color flow to the adnexa. There is no ovarian torsion. There is no pelvic ascites or fluid collection. There is septated 6.6 x 3.9 x 7.5 cm cyst in left ovary breast visualized transabdominal Right ovary measures 2.9 x 1.2 x 1.4 cm. With a volume of 2.1 mL Left ovary measures 7.0 x 4.2 x 8.0 cm. With a volume of 123.15 mL There is no fluid in cul-de-sac US/US pelvic and transvaginal IMPRESSION: IUD in good position. Large septated cyst in left ovary Electronically signed by: Mirian Sousa MD 02/08/2024 12:14 PM [facility] Dictated By: Mirian Sousa MD Signed By: <Electronically signed by Mirian Sousa MD in OV> 02/08/24 1214 DD/ 1250 TD/TT: 02/07/[address] Mechanical Engineer: marianela: Agatha Patino Age/Sex: 49/F Attending: Jacklyn Selby CNM : 1975 Submitted by: Jacklyn Selby CNM Copies to: MR #: [id number] Status: DEP REF Collected: 02/07/24 Location: [facility] Received: 02/08/24 Diagnosis Endometrium, biopsy: Lytic endometrium; no atypia or hyperplasia identified. Clinical History AUB Microscopic Description Microscopic sections reviewed. Material Received EMB Gross Description Received in formalin labeled ?EMB? is a 1.0 x 1.0 x 0.25 cm aggregate of predominantly red-maroon blood and minute shards of congested and hemorrhagic red-maroon tissue, submitted in toto in a cassette labeled A. CEDS NOTE: Unless otherwise stated, all tissue is formalin-fixed and paraffin- embedded. Some or all of the immunohistochemical tests reported herein may have been developed and their performance characteristics de termined by [facility]. They have not been cleared or approved by the U.S. Food and Drug Administration (FDA). However, the FDA has determined that such clearance or approval is not necessary. This laboratory is certified under the Clinical Laboratory Improvement Amendments of 1988 (CLIA) as qualified to perform high complexity clinical laboratory testing. Electronically Signed By: Georges Mina MD 02/09/24 0294 Patient: Agatha Patino [facility]: 49[id number] MR#: [id number] Page 1 of 1 Reviewed slightly low H&H TSH within normal limits, FSH within normal limits for premenopausal. Assessment & Plan Assessment & Plan (1) Menorrhagia: Comment: Started 02/02/2025 EMB and a Mirena placed 11 5,, 6 cm septated cysts noted on ultrasound; Discussed with MZ, testing for tumor markersand the MRI have been ordered and s he will following up 1-2 weeks... Code(s): N92.0 - Excessive and frequent menstruation with regular cycle Category: Medical (2) Migraine headache: Code(s): G43.909 - Migraine, unspecified, not intractable, without status migrainosus Category: Medical (3) Presence of 52 mg levonorgestrel-releasing intrauterine device (IUD): Comment: Placed urgently after EMB 02/07/2024 for menorrhagia. Code(s): Z97.5 - Presence of (intrauterine) contraceptive device Category: Social Hx (4) Ovarian cyst: Comment: 6.6 cm septated cyst; tumor markers in MRI ordered, follow-up w docking saw operator. Code(s): N83.209 - Unspecified ovarian cyst, unspecified side Category: Medical Plan There does not appear to be any infectious process or tenderness involving the uterus or cervix or adnexa ultrasound is consistent with her bleeding and the IUD is in the proper position. Reviewed that it may take some time for the bleeding to subside as the whole reason Mirena was placed as because of her menorrhagia that needed to be managed. Do not think necessarily that the migraine has anything to do with it other than some people's migraines are a definitely aggravated menstrually but there would no reason to remove the Mirena from that point of view. Patient was very slightly tender in her bladder area and so I asked her to please follow-up with her kidney specialists at the [facility] because of her somewhat recent extensive history of multiple stents and kidney surgery. I will be having the patient follow-up with docking saw operator at the hospital we will discuss timing of that visit and let the patient know. I reviewed the ultrasound with her she will need follow-up for that as well and I reviewed all of the labs and the endometrial biopsy with her. After the visit I was able to speak with Dr. Watters and testing was ordered for tumor markers and MRI within without contrast and she will have follow-up with him 1-2 weeks. I called the patient and let her know the plan and even though she had stents they are no longer present. Orders: Orders Bacterial Vaginosis Panel Today N89.8 - Other specified noninflammatory disorders of vagina CT NG by PCR Today N89.8 - Other specified noninflammatory disorders of vagina MR pelvis wo/w con Today G43.909 - Migraine, unspecified, not intractable, without status migrainosus, N83.209 - Unspecified ovarian cyst, unspecified side, N92.0 - Excessive and frequent menstruation with regular cycle, Z97.5 - Presence of (intrauterine) contraceptive device CA-125 Today G43.909 - Migraine, unspecified, not intractable, without status migrainosus, N83.209 - Unspecified ovarian cyst, unspecified side, N92.0 - Excessive and frequent menstruation with regular cycle, Z97.5 - Presence of (int rauterine) contraceptive device Carbohydrate Antigen 19-9 Today G43.909 - Migraine, unspecified, not intractable, without status migrainosus, N83.209 - Unspecified ovarian cyst, unspecified side, N92.0 - Excessive and frequent menstruation with regular cycle, Z97.5 - Presence of (intrauterine) contraceptive device Carcinoembryonic Antigen Today G43.909 - Migraine, unspecified, not intractable, without status migrainosus, N83.209 - Unspecified ovarian cyst, unspecified side, N92.0 - Excessive and frequent menstruation with regular cycle, Z97.5 - Presence of (intrauterine) contraceptive device Coding Level of Care Code Est Pt Level 4 (60812) Diagnoses Menorrhagia N92.0 Migraine headache G43.909 Presence of 52 mg levonorgestrel-releasing intrauterine device (IUD) Z97.5 Ovarian cyst N83.209
== END 2024-02-15 11:23 | disposition home or self-care (01) ==
PROVIDERS: PCP Internal Medicine; Visit Provider Advanced Practice Midwife
DX: N92.0 Excessive and frequent menstruation with regular cycle (principal); G43.909 Migraine, unspecified, not intractable, without status migrainosus; Z97.5 Presence of (intrauterine) contraceptive device; N83.209 Unspecified ovarian cyst, unspecified side
CPT/HCPCS: 99214

== ENCOUNTER 2024-02-15 10:03 | Outpatient (REF) | payer OTHER, SELFPAY ==
[2024-02-16 09:56] LABS: CT PCR NOT DETECTED (Not Detect.); NG PCR NOT DETECTED (Not Detect.)
[2024-02-16 12:03] LABS: Bacterial Vaginosis PCR NEGATIVE (Negative); Candida Group PCR NOT DETECTED (Not Detect); Candida glab krusei PCR NOT DETECTED (Not Detect); Trichomonas vaginalis PCR NOT DETECTED (Not Detect)
== END 2024-02-15 10:04 | disposition home or self-care (01) ==
LOC: HO.LAB 10:03
PROVIDERS: PCP Internal Medicine; Visit Provider Advanced Practice Midwife
DX: N89.8 Other specified noninflammatory disorders of vagina (principal); N92.0 Excessive and frequent menstruation with regular cycle; G43.909 Migraine, unspecified, not intractable, without status migrainosus; Z97.5 Presence of (intrauterine) contraceptive device; N83.209 Unspecified ovarian cyst, unspecified side
CPT/HCPCS: 0352U; 87491; 87591; 99212

== ENCOUNTER 2024-02-16 16:45 | Outpatient (REF) | payer OTHER, SELFPAY ==
[2024-02-16 17:59] LABS: Erythrocyte Sedimentation Rate 5 MM/HR (0-20)
[2024-02-16 18:51] LABS: Blood Urea Nitrogen 16 mg/dL (9-16); Estimated Glomerular Filt Rate > 60
[2024-02-16 19:06] LABS: Carcinoembryonic Antigen < 1.73 ng/mL
[2024-02-17 09:13] LABS: CA-125 8 U/mL (<35); Carbohydrate Antigen 19-9 29 U/mL (<34)
== END 2024-02-16 16:46 | disposition home or self-care (01) ==
LOC: HO.LAB 16:45
PROVIDERS: PCP Internal Medicine; Visit Provider Advanced Practice Midwife
DX: G43.909 Migraine, unspecified, not intractable, without status migrainosus (principal); N92.0 Excessive and frequent menstruation with regular cycle; Z97.5 Presence of (intrauterine) contraceptive device; N83.209 Unspecified ovarian cyst, unspecified side; T50.Z95A Adverse effect of other vaccines and biological substances, initial encounter; M25.50 Pain in unspecified joint
CPT/HCPCS: 36415; 82378; 82565; 84520; 85652; 86301; 86304

== ENCOUNTER → 2024-02-19 13:32 | Outpatient (BNV) | payer OTHER, SELFPAY | PROVIDERS: PCP Internal Medicine; Visit Provider Radiology Diagnostic Radiology | DX: N83.202 Unspecified ovarian cyst, left side (principal) | CPT/HCPCS: 72197 ==

== ENCOUNTER 2024-02-19 13:33 | Outpatient (REF) | payer OTHER, SELFPAY ==
--- NOTE | ~2024-02-19 | MR_ITS ---
EXAMINATION: MR PELVIS WITHOUT AND WITH CONTRAST CLINICAL INFORMATION: Left ovarian cyst. COMPARISON: Correlated to pelvic ultrasound dated February 07, 2024. TECHNIQUE: Multiplanar, multisequence MRI pelvis with and without IV contrast. Total of 70 cc of gadolinium without reported immediate complications. FINDINGS: Left adnexa: There is a 5 x 6 x 6 cm lobulated intrinsic hyperintense T1 and hyperintense T2 nonenhancing lesion with a focal 0.9 cm nodular component in the anterior superior margin. There is layering hyperintense T2 signal in the dependent portion. Right adnexa: No solid or cystic lesion. Uterus: 4 x 6 x 10 cm in maximum dimensions. There is an intrauterine T-shaped contraceptive device placed. There is hyperintense T2 signal within the uterine cavity extending into the endocervical canal. There is a questionable 5 mm calcification in the anterior left lower myometrium. The junctional zone is not fully evaluated measures less than 6 2 m. No free fluid in the cul-de-sac. Bone marrow inhomogeneity. MR/MR pelvis wo/w con IMPRESSION: 5 x 6 x 6 cm lobulated hemorrhagic nonenhancing lesion, left adnexa. Endometrioma cannot be excluded. Electronically signed by: Orestes Horn MD 02/20/2024 09:09 AM [facility]
[2024-02-19] MEDS: gadobutroL 7.5 ML VIAL IVPUSH (14:06)
== END 2024-02-19 13:34 | disposition home or self-care (01) ==
LOC: HO.MRI 13:33
PROVIDERS: PCP Internal Medicine; Visit Provider Advanced Practice Midwife
DX: N83.209 Unspecified ovarian cyst, unspecified side (principal); Z97.5 Presence of (intrauterine) contraceptive device; N92.0 Excessive and frequent menstruation with regular cycle; G43.909 Migraine, unspecified, not intractable, without status migrainosus
CPT/HCPCS: 72197; A9585

== ENCOUNTER 2024-02-23 15:03 | Outpatient (AMB) | payer OTHER, SELFPAY ==
--- NOTE | 2024-02-23 15:12 | A.OFFVIS_ITS ---
Vital Signs 02/23/24 15:13 Height 5 ft 7 in Weight 165 lb 5.547 oz BMI 25.9 Intake Visit Reasons: MRI results Allergies No Known Allergies Allergy (Mild, Verified 02/15/24 10:10) CHANELL JOYCE Comments Details: Presenting for follow-up. 02/07/2024 Pelvic ultrasound showed the following: Uterus: The uterus is anteverted, retroflexed and measures 9.0 x 4.1 x 5.5 cm. There is 0.7 x 0.6 x 0.7 cm uterine fibroid in the body, unchanged since the previous study. The double wall endometrial thickness is 0.8 mm. There is IUD in good position Adnexa: Both ovaries are visualized. There is normal color flow to the adnexa. There is no ovarian torsion. There is no pelvic ascites or fluid collection. There is septated 6.6 x 3.9 x 7.5 cm cyst in left ovary breast visualized transabdominal Right ovary measures 2.9 x 1.2 x 1.4 cm. With a volume of 2.1 mL Left ovary measures 7.0 x 4.2 x 8.0 cm. With a volume of 123.15 mL There is no fluid in cul-de-sac Pelvic MRI done on 02/19/2024 showed the following: Left adnexa: There is a 5 x 6 x 6 cm lobulated intrinsic hyperintense T1 and hyperintense T2 nonenhancing lesion with a focal 0.9 cm nodular component in the anterior superior margin. There is layering hyperintense T2 signal in the dependent portion. Right adnexa: No solid or cystic lesion. Uterus: 4 x 6 x 10 cm in maximum dimensions. There is an intrauterine T-shaped contraceptive device placed. There is hyperintense T2 signal within the uterine cavity extending into the endocervical canal. There is a questionable 5 mm calcification in the anterior left lower myometrium. The junctional zone is not fully evaluated measures less than 6 2 m. No free fluid in the cul-de-sac. Bone marrow inhomogeneity. The following workup for AUB was done.: H&H= 11. TSH, hCG, GC and chlamydia were negative. FSH/LH in the premenopausal range Endometrial biopsy pathology showed the following: Lytic endometrium; no atypia or hyperplasia identified. . Co testing was done in 12/24 was negative. Mammogram was BI-RADS 1 Mirena IUD was inserted 2 weeks ago and her bleeding is persistent, the patient is complaining of continuous headache and would like the IUD taken out. CA 125 CEA and CA 19-9 were negative [facility] Medical History Renal calculi Liver cyst Anxiety Hypertension Kidney stones Well woman exam with routine gynecological exam Acid reflux Palpitation Abdominal migraine Low back pain Sinusitis COVID-19 Surgical History Hx of cystoscopy History of tubal ligation History of pubovaginal sling Family History Mother No problems noted. Father No problems noted. Social History Housing: House Alcohol intake: current Alcohol intake frequency: holidays/special occasions only Alcohol type: wine Patient Tobacco Use Status: Never used Tobacco e-Cigarette/Vaping Use: Never Used Second Hand Smoke Exposure: No service: No Current occupational status: employed Current occupational exposures/hazards: No Gender identity: Female Cognitive needs: No Hearing needs: No Vision needs: No Female Reproductive History Menstrual Age of Menarche: 13 Review of Systems Const All systems reviewed & are unremarkable except as noted in HPI and below Physical Exam Vital Signs: BMI result Body Mass Index 25.9 General: Yes no CVA tenderness External Female Exam: normal external appearance and normal appearance of the urethra Speculum Exam - Vagina: normal appearance of the vagina, normal palpation, no lesions and no masses Speculum Exam - Cervix: normal appearance of the cervix, normal palpation, no lesions, no masses and nontender Bimanual exam- vagina & uterus: normal bimanual exam, normal palpation, uterine size normal, normal palpation, uterine shape normal, No Cervical tenderness present and non-tender Bimanual Exam- Adnexa, other: normal adnexae Back/Spine/Pelvis Back: no CVA tenderness Office Procedures IUD Insert/Removal Details Details: Counseling/Consent: After discussing with the patient the risks of the procedure including bleeding, infection, scar tissue formation, , possible injury to blood vessels or nerves, chronic arm pain, blood transfusion, and irregular unpredictable bleeding Alternative options were discussed with the patient including but not limited: Do nothing. The patient signed the consent and agreed with the plan; all questions answered. Urine test was done in the office and was negative Preop dx: Requesting IUD removal Op: IUD removal Post op dx: same EBL= 10 cc Procedure: The patient was put in the dorsal lithotomy position a speculum was inserted in the vagina the IUD thread identified. Using a Katrin clamp the thread was grasped and the IUD pulled out with no complications. The patient tolerated the procedure well and was advised to use a different method for contraception. Discharge instructions: Instructions were given to the pt to call if temp>100.4, abdominal pain heavy vaginal bleeding, n/v occur. The patient verbalized understanding and all questions answered. This note was generated with a voice recognition program. Some errors may have been overlooked during the review of this note. Sometimes these errors may affect the content or meaning of a given sentence. [id number] Removal Procedure code (CPT) selection complete Assessment & Plan Assessment & Plan (1) Abnormal uterine bleeding (AUB): Comment: With 0.9 cm myoma Code(s): N93.9 - Abnormal uterine and vaginal bleeding, unspecified Category: Medical Plan: Discussed with the patient the results of the work up done and options of treatment including Lysteda, BCP's (contraindicated in patients with migraine), endometrial ablation and hysterectomy. All pros, cons, risks and benefits if each option was discussed with the patient and the patient decided to go ahead with Lysteda , so a more detailed discussion re: Lysteda including mechanism of action, benefits, risks including but not limited to thrombosis and strokes, Instructions were given on how to use, 2 tablets p.o. 3 times a day day 1 up to 3-5 days of menses and to schedule a 3 months follow-up appointment. The patient verbalized understanding and agreed with the plan. (2) Complex ovarian cyst: Code(s): N83.299 - Other ovarian cyst, unspecified side Category: Medical Plan: Discussed with the patient the results of pelvic ultrasound and MRI, recommended laparoscopic ovarian cystectomy/oophorectomy. Will refer to Gyne Onc for further management (3) Remove/insert IUD: Code(s): Z30.433 - Encounter for removal and reinsertion of intrauterine contraceptive device Category: Medical Plan: Mirena IUD removed, see procedure Orders: Referrals Gynecologic Oncology Referral N83.299 - Other ovarian cyst, unspecified side Medications: New tranexamic acid Start 1st day of menses and take it up to 3-5 days of menses. 1,300 mg (2 x 650 mg) PO TID 5 days 30 tabs 2RF Coding Level of Care Code Est Pt Level 3 (69466) Procedure Only Diagnoses Abnormal uterine bleeding (AUB) N93.9 Complex ovarian cyst N83.299 Remove/insert IUD Z30.433 CPT Codes Details - CPT: 43761-XWY Removal ([id number])
[2024-02-23 15:13] VITALS: BMI 25.9
== END 2024-02-23 16:23 | disposition home or self-care (01) ==
LOC: HO.HWS 15:03
PROVIDERS: PCP Internal Medicine; Visit Provider Obstetrics & Gynecology
DX: N93.9 Abnormal uterine and vaginal bleeding, unspecified (principal); N83.299 Other ovarian cyst, unspecified side; Z30.432 Encounter for removal of intrauterine contraceptive device
CPT/HCPCS: 58301; 99213

== ENCOUNTER → 2024-02-23 15:03 | Outpatient (BNVA) | payer OTHER, SELFPAY | PROVIDERS: PCP Internal Medicine; Visit Provider Obstetrics & Gynecology | DX: Z30.433 Encounter for removal and reinsertion of intrauterine contraceptive device (principal); N83.299 Other ovarian cyst, unspecified side; N93.9 Abnormal uterine and vaginal bleeding, unspecified | CPT/HCPCS: 58301; 99212 ==

== ENCOUNTER 2024-06-29 15:01 | Outpatient (REF) | payer OTHER, SELFPAY ==
--- NOTE | ~2024-06-29 | XR_ITS ---
CLINICAL HISTORY: b l knee pain AP standing, tunnel and sunrise views of the bilateral knees Lateral view right knee Lateral view left knee Comparison: None Findings: There is a leg length discrepancy. The left medial tibial plateau is 1.5 cm superior to the right. No fracture or dislocation. Mild narrowing of the lateral aspects of the bilateral patellofemoral joints. Unremarkable medial and lateral knee compartments. No joint effusion. No radiopaque foreign body. IMPRESSION: There is a leg length discrepancy. This document has been electronically signed by: Kate Bass MD on 07/02/2024 16:04:05
--- NOTE | ~2024-06-29 | XR_ITS ---
CLINICAL HISTORY: M54.5 - Low back pain 5 views lumbar spine Comparison: None Findings: Normal alignment. Mild dextrocurvature. No acute fractures or dislocation. No significant degenerative change. IMPRESSION: No acute findings. This document has been electronically signed by: Kate Bass MD on 07/02/2024 16:00:26
[2024-06-29 16:18] LABS: MANUAL DIFF FLAG NO
[2024-06-29 17:12] LABS: Basophils Absolute Auto 0.1 X10*3/uL (0.0-0.2); Basophils Percent Auto 0.8 % (0-2); Eosinophils Absolute Auto 0.1 X10*3/uL (0.0-0.4); Eosinophils Percent Auto 1.7 % (0-4); Hematocrit 33.6 % (37.0-47.0); Hemoglobin 10.9 g/dl (12.0-16.0); Imm Gran Abs Auto 0.02 X10*3/uL (0.00-0.03); Imm Gran Pct Auto 0.3 % (0.0-0.4); Lymphocytes Absolute Auto 1.6 X10*3/uL (1.2-4.9); Lymphocytes Percent Auto 25.3 % (20-40); Mean Corpuscular HGB Conc 32.4 g/dl (31.0-35.0); Mean Corpuscular Hemoglobin 29.9 pg (27.0-33.0); Mean Corpuscular Volume 92.1 fL (80.0-98.0); Mean Platelet Volume 9.7 fL (9.4-12.3); Monocytes Absolute Auto 0.3 X10*3/uL (0.1-1.2); Monocytes Percent Auto 4.5 % (2-11); Neutrophils Absolute Auto 4.4 x10*3/uL (2.0-8.3); Neutrophils Percent Auto 67.4 % (45-73); Platelet Count 256 X10*3/uL (160-400); Red Blood Count 3.65 X10*6/uL (4.20-5.50); Red Cell Distribution Width 13.3 % (11.0-16.0); White Blood Count 6.5 X10*3/uL (4.8-10.8)
[2024-06-29 17:31] LABS: Estimated Average Glucose 114 mg/dL; Hemoglobin A1c % 5.6 % (<6.0)
[2024-06-29 17:53] LABS: Erythrocyte Sedimentation Rate 7 MM/HR (0-20)
[2024-06-29 18:13] LABS: Anion Gap 8 (12-20)
[2024-06-29 18:14] LABS: Alanine Aminotransferase 18 U/L (0-31); Albumin Level 4.1 g/dL (3.5-5.0); Aspartate Amino Transferase 21 U/L (5-31); Bilirubin Direct < 0.2 mg/dL (0.0-0.5); Bilirubin Total 0.2 mg/dL (0.0-1.0); Blood Urea Nitrogen 14 mg/dL (9-16); C Reactive Protein 0.17 mg/dL (< or = 0.50); Carbon Dioxide 28 mmol/L (22-29); Chloride 108 mmol/L (96-108); Estimated Glomerular Filt Rate > 60; Glucose Random 83 mg/dL (60-115); Magnesium 2.1 mg/dL (1.6-2.6); Phosphorus 2.6 mg/dL (2.7-4.5); Potassium 3.7 mmol/L (3.3-5.1); Sodium 140 mmol/L (135-145); Total Protein 6.6 g/dL (6.5-8.0)
[2024-06-29 18:32] LABS: Alkaline Phosphatase 73 U/L (39-117)
[2024-06-29 18:35] LABS: Vitamin D 25-OH Total 24.6 ng/mL (>30)
[2024-06-29 18:48] LABS: Folate 14.5 ng/mL (> or = 4.0); Vitamin B12 897 pg/mL (200-900)
[2024-07-03 06:13] LABS: Zinc 58 mcg/dL (60-130)
[2024-07-07 14:18] LABS: Vitamin B1 10 nmol/L (8-30)
== END 2024-06-29 15:02 | disposition home or self-care (01) ==
LOC: HO.XRAY 15:01
PROVIDERS: PCP Internal Medicine; Visit Provider Physician Assistant Medical
DX: M54.50 Low back pain, unspecified (principal); M25.561 Pain in right knee; M25.562 Pain in left knee; R53.83 Other fatigue; K13.70 Unspecified lesions of oral mucosa; E66.3 Overweight; Z68.25 Body mass index [BMI] 25.0-25.9, adult; Z00.00 Encounter for general adult medical examination without abnormal findings
CPT/HCPCS: 36415; 72110; 73564; 80053; 82248; 82306; 82607; 82746; 83036; 83735; 83970; 84100; 84425; 84443; 84630; 85025; 85652; 86140; 96127; 99212

== ENCOUNTER 2024-06-29 15:01 | Outpatient (AMB) | payer OTHER, SELFPAY ==
--- NOTE | 2024-06-29 15:20 | A.OFFPC_ITS ---
Vital Signs 06/29/24 15:23 Height 5 ft 7 in Weight 169 lb 6 oz BMI 26.5 BP 120/60 Blood Pressure Location Lt brachial Position Sitting Pulse 80 Pulse Source Pulse Oximeter Temp 97.7 F Temp Source Temporal Artery Scan Pulse Oximetry (%) 98 Oxygen Delivery Method Room Air Intake Visit Reasons: Lower back pain and Bilateral knee pain Intake Note: Patient is here to follow up on Lower back pain, bilateral knee pain. 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 Accompanied by: Self / Same As Patient Allergies No Known Allergies Allergy (Mild, Verified 06/29/24 15:33) NKA Medication List - Last Reconciled 06/29/24 by Lizz Fitzgerald PA-C diazepam 5 mg PO DAILY PRN ibuprofen 600 mg PO Q8H PRN meclizine 25 mg PO TID PRN omeprazole 20 mg PO DAILY sumatriptan succinate 50 mg PO .QD PRN tranexamic acid 1,300 mg (2 x 650 mg) PO TID 5 days valacyclovir 1,000 mg PO DAILY Tobacco use date assessed: 06/29/24 Dental Screening Dental Screen Date: 06/29/24 Did you have a dental visit in the last 12 months?: Yes Did you have a dental problem in the last 6 months where you did not have access to dental care?: No Was dental information given to patient?: Patient has dentist [facility] Medical History (Updated 06/29/24 @ 15:55 by Lizz Fitzgerald PA-C) Overweight with body mass index (BMI) of 25 to 25.9 in adult Oral lesion Bilateral knee pain Renal calculi Liver cyst Anxiety Hypertension Kidney stones Well woman exam with routine gynecological exam Acid reflux Palpitation Abdominal migraine Low back pain Sinusitis COVID-19 Surgical History Hx of cystoscopy History of tubal ligation History of pubovaginal sling Family History Mother No problems noted. Father No problems noted. Social History Housing: House Alcohol intake: current Alcohol intake frequency: holidays/special occasions only Alcohol type: wine Patient Tobacco Use Status: Never used Tobacco e-Cigarette/Vaping Use: Never Used Second Hand Smoke Exposure: No service: No Current occupational status: employed Current occupational exposures/hazards: No Gender identity: Female Cognitive needs: No Hearing needs: No Vision needs: No Female Reproductive History Menstrual Age of Menarche: 13 Questionnaire PHQ-9 Over the last 2 weeks, how often have you been bothered by any of the following problems? 1. Little interest or pleasure in doing things: not at all 2. Feeling down, depressed, or hopeless: not at all 3. Trouble falling or staying asleep, or sleeping too much: not at all 4. Feeling tired or having little energy: not at all 5. Poor appetite or overeating: not at all 6. Feeling bad about yourself - or that you are a failure or have let yourself or your family down: not at all 7. Trouble concentrating on things, such as reading the newspaper or watching television: not at all 8. Moving or speaking so slowly that other people could have noticed. Or the opposite - being so fidgety or restless that you have been moving around a lot more than usual: not at all 9. Thoughts that you would be better off or of hurting yourself in some way: not at all Total score: 0 Depression Screening Interpretation: Negative Depression Screening Done: Yes 89955 - PHQ-9 Billing: Yes Source: Developed by Drs. Rickey Ellis, Diane De Jesus, Hussein Johnson and colleagues, with an educational you from [employer]. Thrive Questionnaire Date Thrive assessed: 06/29/24 I am a: Patient What is your living situation today?: I have a steady place to live Within the past 12 months, did the food you bought not last and you didn't have the money to get more?: Never true Within the past 12 months, did you worry whether your food would run out before you got money to buy more?: Never true Do you have trouble paying for medicines?: No Do you have trouble getting transportation to medical appointments?: No Do you have trouble paying your heating and electricity bill?: No Do you have trouble taking care of your child, family member or friend?: No Do you have trouble with day-to-day activities such as bathing, preparing meals, shopping, managing finances, etc.?: No Are you currently unemployed and looking for a job?: No Are you interested in more education?: No Please select the resources that you would like help with: None Currently or been in a relationship where the following occur: No concerns reported THRIVE Score: 0 AUDIT C Alcohol Use Questionnaire (AUDIT-C) 1. How often do you have a drink containing alcohol?: 2-4 times a month 2. How many drinks containing alcohol do you have on a typical day when you are drinking?: 1 or 2 Total Score: 2 Score Reviewed/Action Taken: No AFRICA-7 AMB Questionnaire AFRICA-7 Date AFRICA - 7 assessed: 06/29/24 Feeling nervous, anxious, or on edge: 0 = Not at all Not being able to stop or control worryin = Not at all Worrying too much about different things: 0 = Not at all Trouble relaxin = Not at all Being so restless that it is hard to sit still: 0 = Not at all Becoming easily annoyed or irritable: 0 = Not at all Feeling afraid as if something awful might happen: 0 = Not at all Total AFRICA-7 score (0-4 normal; 5-9 mild; 10-14 moderate; 15-21 severe): 0 Source: Developed by Drs. Rickey Ellis, Diane De Jesus, Hussein Johnson and colleagues, with an educational you from [employer]. AFRICA-7 Assessment Billing AFRICA-7 Assessment Tool: AFRICA-7 Assessment 73846 Physical exam (Primary Care) Vital Signs: Last Vital Signs Temp 97.7 F 06/29/24 15:23 Pulse 80 06/29/24 15:23 BP 120/60 06/29/24 15:23 Pulse Ox 98 06/29/24 15:23 Oxygen Delivery Method Room Air 06/29/24 15:23 Care Plan Goal for BP management: <130/80 at goal BMI result Body Mass Index 26.5 BMI Assessment/Plan discussion: High BMI High, discussed plan: lifestyle, weight reduction, dietary, physical activity and alcohol moderation Tobacco/Smoking Status: Tobacco use Status Tobacco use date assessed 06/29/24 06/29/24 15:27 Patient Tobacco Use Status Never used Tobacco 06/29/24 15:27 e-Cigarette/Vaping Use Never Used 03/28/25 15:27 PHQ-9: PHQ-9 Score PHQ-9: Total score 0 06/29/24 15:27 Depression Screening Interpretation: Negative Thrive Assessment: Date of Thrive Assessment Date Thrive assessed 06/29/24 06/29/24 15:27 Currently or been in a relationship where the following occur: No concerns repor carla Coding Level of Care Code Est Pt Level 4 (62283) Complex EM visit Add On G2211 Diagnoses Bilateral knee pain M25.561; M25.562 Low back pain M54.5 Fatigue R53.83 Oral lesion K13.70 Overweight with body mass index (BMI) of 25 to 25.9 in adult E66.3; Z68.25 Additional Codes PHQ-9 - 36597 - PHQ-9 Billing: Yes ([id number]) AFRICA-7 Assessment Billing - AFRICA-7 Assessment Tool: AFRICA-7 Assessment 17740 ([id number]) Assessment & Plan Assessment & Plan (1) Bilateral knee pain: Code(s): M25.561 - Pain in right knee; M25.562 - Pain in left knee Category: Medical Plan: Bilateral knee x-rays ordered, continue analgesics, lifestyle modifications for weight. (2) Low back pain: Code(s): M54.5 - Low back pain Category: Medical Plan: Ordered lumbar spine x-ray, continued analgesics, potential muscle relaxants for relief. Monitor with x-ray results. (3) Fatigue: Code(s): R53.83 - Other fatigue Category: Medical Plan: Ordered comprehensive blood work, results pending for further evaluation. (4) Oral lesion: Code(s): K13.70 - Unspecified lesions of oral mucosa Category: Medical Plan: Provided valacyclovir refill, monitor symptoms. (5) Overweight with body mass index (BMI) of 25 to 25.9 in adult: Code(s): E66.3 - Overweight; Z68.25 - Body mass index [BMI] 25.0-25.9, adult Category: Medical Plan: Patient to improve her diet and exercise regimen. Condition is chronic and stable continue to monitor. Plan Plan Patient was informed and verbally consented to the use of an ambient scribe for clinic note documentation during this visit. 1. Lower Back Pain Ordered lumbar spine x-ray, continued analgesics, potential muscle relaxants for relief. Monitor with x-ray results. 2. Exhaustion Ordered comprehensive blood work, results pending for further evaluation. 3. Bilateral Knee Pain Bilateral knee x-rays ordered, continue analgesics, lifestyle modifications for weight. 4. Oral Lesion Provided valacyclovir refill, monitor symptoms. Discussion Notes I discussed with the patient the current symptoms of lower back pain and bilateral knee pain, highlighting the potential influences of weight gain and arthritis. I explained the need for a lumbar spine x-ray and bilateral knee x- ray for diagnostic clarity, and the rationale for prescribing muscle relaxants for her severe discomfort. Regarding her oral lesion, we reviewed the effective use of valacyclovir, issuing a prescription refill accordingly. We also covered her fatigue concerns by planning thorough blood tests to identify any potential deficiencies or conditions linked to these symptoms, ensuring all necessary labs are ordered. These findings will guide subsequent follow-up discussions, and I emphasized her receipt of results through patient communication channels. She can secure necessary consultations via the patient portal or direct contact. Orders: Orders XR lumbar spine 4V min Today M54.5 - Low back pain XR Knee Bro 4V Today M25.561 - Pain in right knee, M25.562 - Pain in left knee Complete Blood Count Auto Diff Today Z00.00 - Encounter for general adult medical examination without abnormal findings Magnesium Today Z00.00 - Encounter for general adult medical examination without abnormal findings Vitamin B12 and Folate Today Z00.00 - Encounter for general adult medical examination without abnormal findings Vitamin D 25-OH Total Today Z00.00 - Encounter for general adult medical exami [facility] without abnormal findings C Reactive Protein Today Z00.00 - Encounter for general adult medical examination without abnormal findings Zinc Today Z00.00 - Encounter for general adult medical examination without abnormal findings Comprehensive Met. Panel Today Z00.00 - Encounter for general adult medical examination without abnormal findings TSH reflex Free T4 Today Z00.00 - Encounter for general adult medical examination without abnormal findings Liver Panel Today Z00.00 - Encounter for general adult medical examination without abnormal findings Erythrocyte Sedimentation Rate Today Z00.00 - Encounter for general adult medical examination without abnormal findings Hemoglobin A1c Today Z00.00 - Encounter for general adult medical examination without abnormal findings Vitamin B1 Today Z00.00 - Encounter for general adult medical examination without abnormal findings Parathyroid Hormone Intact Today Z00.00 - Encounter for general adult medical examination without abnormal findings Phosphorus Today Z00.00 - Encounter for general adult medical examination without abnormal findings Medications: New cyclobenzaprine 10 mg PO Q8H 30 tabs 0RF Refilled diazepam 5 mg PO DAILY PRN 30 tabs 0RF anxiety valacyclovir 1,000 mg PO DAILY 90 tabs 4RF Patient Instructions: Patient Instructions - Undergo lumbar spine and bilateral knee x-rays today as directed. - Use prescribed muscle relaxants as needed for back discomfort. - Continue taking fckc-fvn-litobux Tylenol for pain management. - Return for follow-up after receiving test results, which will be communicated. - Fill and use the prescribed valacyclovir for oral lesions. - Follow through with comprehensive blood work outlined today. - Monitor symptoms and proceed with advised lifestyle modifications to manage weight gain's impact on joint pains. - Contact for any changes or worsening of symptoms. Scribe Plan - Not visible on output: History of Present Illness The patient is a 49-year-old female presenting with lower back pain and bilateral knee pain. She reports that the low back pain began several months ago, with significant worsening over the last few weeks, intensifying with specific movements such as bending and turning her body. The pain affects her a bility to perform tasks involving bending, such as dressing. The patient denies any recent falls or trauma and reports no numbness or weakness in her legs. Although she does not report any changes in bowel or bladder function that are concerning, there is a history of a prior surgery related to the kidneys. The patient's knee pain is bilateral and exacerbated by physical activities like climbing stairs or certain seated positions. She perceives the recent weight gain as a possible contributing factor to her symptoms. She has been taking tigm-klp-iavzohb Tylenol for relief and has sought previous treatment from Dr. Guardado for a recurrent oral lesion, which notably responds to specific prescription medication. Moreover, the patient describes a persistent sense of exhaustion, for which a thorough lab work evaluation was discussed to identify any potential underlying causes. Despite not experiencing fatigue due to exertion, she attributes no specific event or lifestyle change to her symptoms. Social History - The patient implies recent weight gain, suggesting potential changes in lifestyle or diet. - Functional status: Difficulty with climbing stairs, dressing, and undressing due to pain. Review of Systems - Neuromuscular: Denies numbness, weakness. - Genitourinary: Denies blood in urine. - Gastrointestinal: Denies black or bloody stools. - Respiratory: Reports fatigue without clear cause. - Hematologic: Reports no known issues with bleeding. - Mouth/Throat: Reports recent oral lesion. - Endocrine: Reports exhaustion. Physical Exam Appearance: Alert. Oriented X3. No acute distress. Head: Normal external exam. Normocephalic. Atraumatic. Eyes: Pupils are equal, round, and reactive to light. Extraocular movements intact. Conjunctiva and sclera normal. Eyelids normal. Throat: Pharynx normal. Uvula midline. Moist mucous membranes. Neck: Normal inspection. Neck supple. Full range of motion. Cardiovascular: Normal heart rate and rhythm. Respiratory: No respiratory distress. Painless inspiration. Abdomen: Soft and nontender. Bowel sounds normal in all 4 quadrants. No distention noted. No organomegaly noted. No visible injury noted. Back: Tenderness noted in the lower back with movement, especially when bending or moving left and right. Full range of motion noted. Skin: Skin warm and dry. Normal skin color. Normal skin turgor. No rashes/lesions/lacerations noted. Sore noted in the mouth. Extremities: No lower extremity edema. Pain noted in both knees when going up the stairs. Extremities exhibit normal range of motion. Extremities nontender. Neuro: Oriented X 3. No motor deficit. No sensory deficit. Reflexes normal.
[2024-06-29 15:23] VITALS: BP 120/60; PULSE 80; TEMP 36.5; O2SAT 98; BMI 26.5
== END 2024-06-29 15:39 | disposition home or self-care (01) ==
LOC: HO.HMCH 15:01
PROVIDERS: PCP Internal Medicine; Visit Provider Physician Assistant Medical
DX: M25.561 Pain in right knee (principal); M25.562 Pain in left knee; M54.50 Low back pain, unspecified; R53.83 Other fatigue; K13.70 Unspecified lesions of oral mucosa; E66.3 Overweight; Z68.25 Body mass index [BMI] 25.0-25.9, adult

== ENCOUNTER → 2024-06-29 16:13 | Outpatient (BNV) | payer OTHER, SELFPAY | PROVIDERS: PCP Internal Medicine; Visit Provider Radiology Diagnostic Radiology | DX: M54.50 Low back pain, unspecified (principal); M79.605 Pain in left leg; M79.604 Pain in right leg; M21.762 Unequal limb length (acquired), left tibia | CPT/HCPCS: 72110; 73564 ==

== ENCOUNTER 2024-07-24 15:04 | Outpatient (REF) | payer OTHER, SELFPAY ==
[2024-07-24 16:26] LABS: Cholesterol 231 mg/dL (<200); HDL Cholesterol 52 mg/dL (>40); Iron 48 mcg/dL (30-160); LDL Cholesterol Calculated 155 mg/dL (<100); Percent Iron Saturation 16 % (15-50); Total Iron Binding Capacity 307 mcg/dL (228-428); Triglycerides 123 mg/dL (<150); Unsaturated Iron Binding 259 ug/dL
--- OUTSIDE RECORDS SUMMARY | 2024-07-24 18:02 | XMS_ITS | Continuity of Care Document ---
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 [address], [address], [place], [address], [place]. [phone] Referring Provider: Jhonny Carvalho MD, [address], [place], [address]. tel:[phone] [facility], [address], [id number], [place] tel:[phone] [facility] [place] [facility] [place] [facility] - ([place] Shakir Valderramanando. [address], [address], [facility] [place], [address], [place]. tel: [phone] Referring Provider: Jhonny Carvalho MD, [address], [place], [address]. tel:[phone] [facility], [address], [place], [place], [id number], [place] tel:[phone] [facility] [place] [facility] [place] [facility] - ([place]) Shakir Valderramanando. [address], [address], [facility] [place], [address], [place]. tel: [phone] Referring Provider: Jhonny Carvalho MD, [address], [place], [address]. tel:[phone] Offic Cons [facility] Mod 40 Nm [facility] [place] [facility], [address], [place], [place], [id number], [place] tel:[phone] [facility] - [place] [facility] - ([place]) Shakir Valderramanando. [address], [address], [facility] [place], [address], [place]. tel: [phone] Referring Provider: Jhonny Carvalho MD, [address], [place], [address]. tel:[phone] [facility] [place] [facility], [address], [place], [place], [id number], [place] tel:[phone] [facility] - [place] Body mass index (BMI) 25.0-25.9, adultSpider Veins - ([place])Pain in right legPain in left leg Shakir Lakhwinder. [address], [address], [place], [address], [place]. tel: [phone] Referring Provider: Jhonny Carvalho MD, [address], [place], [address]. tel:[phone] Family History Family Member Type Diagnosis Age At Onset No Information Payers Payer name Insurance type Covered republican ID Authoriza tion(s) No Information Social History [...]
== END 2024-07-24 15:05 | disposition home or self-care (01) ==
LOC: HO.LAB 15:04
DX: D64.9 Anemia, unspecified (principal); R53.83 Other fatigue; E78.5 Hyperlipidemia, unspecified
CPT/HCPCS: 36415; 80061; 83540

== ENCOUNTER 2024-10-18 10:44 | Outpatient (AMB) | payer MEDICAID, SELFPAY ==
--- OUTSIDE RECORDS SUMMARY | 2017-11-30 10:00 | XMS_ITS | Continuity of Care Document ---
Author Organization [facility] Address [address] [place] [address] Phone Care Team Providers Care Automation Consultant Name Role Phone Lakhwinder Schilling MD Unavailable [...] Copied on Encounter [facility], [address], [place], [place], [id number], [place] tel:[phone] [facility] - [facility] No Information Shakir Keane. [address], [place], [address], [place]. tel:[phone] Referring Provider: Jhonny Carvalho MD, [address], [place], [address]. tel:[phone] [facility], [address] [place] [address], [id number], [place] tel:[phone] [place] - [place] [facility] - ([place]) Shakir Keane. [address], [place], [address], [place]. [phone] Referring Provider: Jhonny Carvalho MD, [address], [place], [address]. tel:[phone] [facility], [address], [place], [place], [id number], [place] tel:[phone] [place] - [place] [facility] - ([place]) Shakir Keane. [address], [place], [address], [place]. [phone] Referring Provider: Jhonny Carvalho MD, [address], [place], [address]. tel:[phone] Offic [facility] Mod 40 Mt [facility], [address], [place], [place], [id number], [place] tel:[phone] [place] - [place] [facility] - ([place]) Shakir Keane. [address], [place], [address], [place]. tel:[phone] Referring Provider: Jhonny Carvalho MD, [address], [place], [address]. tel:[phone] [facility], [address], [place], [place], [id number], [place] tel:[phone] [place] - [place] Body mass index (BMI) 25.0-25.9, adultSpider Veins - ([place])Pain in right legPain in left leg Shakir Keane. [address], [place], [address], [place]. tel:[phone] Referring Provider: Jhonny Carvalho MD, [address], [place], [address]. tel:[phone] Family History Family Member Type Diagnosis Age At Onset No Information Payers Payer name Insurance type Covered alliance party ID Authoriza tion(s) No Information Social [...]
--- NOTE | 2024-10-18 10:45 | A.OFFVIS_ITS ---
Intake Visit Reasons: VP PRODUCTION- Bilateral knee and Lower Back Pain Intake Note: Agatha is a 49 year old female who presents today as a new patient for Bilateral knee pain and Lower back pain. Patient was referred by her PCP Lizz Fitzgerald PA-C on 07/02/24, Lumbar spine and B/L Knee X-Ray's were done. Patient states with movement she has a stabbing pain in her lower back. Each day is different, some days are better than others. She has tried ice and heat therapy but it did not give her any relief. She describes the issue as feeling like something is out of allignment. 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 Dr. Carvalho would prescribe previously Tramadol. New PCP is Lizz Fitzgerald. Pain is worse the last year. Across the lower back. Can radiate to right leg/knee area, right worse than left. Worse with bending or squatting. Depending on position, may feel like stabbing. Can't tell if knee pain is separate or not, it is usually daily, when going up stairs. Knee stiffness when she gets up in the morning. Has never noted any leg length discrepancy. No numbness or weakness. No bladder/bowel changes. No PT yet. [facility] Medical History (Updated 10/18/24 @ 11:15 by Yulisa Humphries MD) Sacroiliac joint dysfunction of both sides Overweight with body mass index (BMI) of 25 to 25.9 in adult Oral lesion Bilateral knee pain Renal calculi Liver cyst Anxiety Hypertension Kidney stones Well woman exam with routine gynecological exam Acid reflux Palpitation Abdominal migraine Low back pain Sinusitis COVID-19 Surgical History Hx of cystoscopy History of tubal ligation History of pubovaginal sling Family History Mother No problems noted. Father No problems noted. Social History Housing: House Alcohol intake: current Alcohol intake frequency: holidays/special occasions only Alcohol type: wine Patient Tobacco Use Status: Never used Tobacco e-Cigarette/Vaping Use: Never Used Second Hand Smoke Exposure: No service: No Current occupational status: employed Current occupational exposures/hazards: No Gender identity: Female Cognitive needs: No Hearing needs: No Vision needs: No Female Reproductive History Menstrual Age of Menarche: 13 Review of Systems Const All systems reviewed & are unremarkable except as noted in HPI and below Physical Exam Constitutional: Patient appears to be in no acute distress, well nourished and well developed. Patient was appropriately conversant and oriented. Good historian. MSK: No specific abnormalities found on inspection of the spine and all extremities. No pain with palpation over the lumbar area. Bilateral SI joints tender. Lumbar ROM was full. Bilateral hip, knee and ankle ROM WNL. No ligamentous laxity or crepitance. No increased effusion. Straight-leg raising test negative. FABERE test positive bilateral back pain. Gillet test showed positive stiffness on left side.. Strength is 5/5 in all muscle groups tested. No increased tone noted. Neurological: Neurologic examination of the upper and lower extremities was nonfocal with intact sensation, muscle stretch reflexes and without focal motor deficits . Babinski was down going bilaterally. Clonus was negative. Gait is non-antalgic without loss of balance.. Results Reviewed Results Reviewed: I independently reviewed the results of the following: Lumbar x-ray showed disc space preserved. Ordering Physician: Lizz Fitzgerald PA-C Date of Service: 06/29/24 Procedure(s): XR Knee Bro 4V Accession Number(s): [id number] cc: Jhonny Carvalho MD; Lizz Fitzgerald PA-C~ CLINICAL HISTORY: b l knee pain AP standing, tunnel and sunrise views of the bilateral knees Lateral view right knee Lateral view left knee Comparison: None Findings: There is a leg length discrepancy. The left medial tibial plateau is 1.5 cm superior to the right. No fracture or dislocation. Mild narrowing of the lateral aspects of the bilateral patellofemoral joints. Unremarkable medial and lateral knee compartments. No joint effusion. No radiopaque foreign body. IMPRESSION: There is a leg length discrepancy. This document has been electronically signed by: Kate Bass MD on 07/02/2024 16:04:05 Ordering Physician: Lizz Fitzgerald PA-C Date of Service: 06/29/24 Procedure(s): XR lumbar spine 4V min Accession Number(s): [id number] cc: Jhonny Carvalho MD; Lizz Fitzgerald PA-C~ CLINICAL HISTORY: M54.5 - Low back pain 5 views lumbar spine Comparison: None Findings: Normal alignment. Mild dextrocurvature. No acute fractures or dislocation. No significant degenerative change. IMPRESSION: No acute findings. This document has been electronically signed by: Kate Bass MD on 07/02/2024 16:00:26 I reviewed records from the following: PCP Assessment & Plan Assessment & Plan (1) Sacroiliac joint dysfunction of both sides: Code(s): M53.3 - Sacrococcygeal disorders, not elsewhere classified Category: Medical Plan Suspect SI joint dysfunction causing her back pain. No signs radiculitis. Reviewed lumbar x-rays which showed preserved disc spaces. No pathology/inflammation seen on knee exam. Knee x-rays also unremarkable. Referral to PT: work on bilateral SI joint, alignment, pelvic stabilization. Assessment and plan discussed with patient, and patient was agreeable. All questions were answered thoroughly. Follow up 2 months. Yulisa Humphries MD, VICKY Board Certified, [place] [employer] and Rehabilitation (ABPMR) Board Certified, [place] [employer] Electrodiagnostic [employer] (ABEM) Orders: Orders PT Evaluation and Treatment Today M53.3 - Sacrococcygeal disorders, not elsewhere classified Coding Level of Care Code New Pt Level 4 (67714) Diagnoses Sacroiliac joint dysfunction of both sides M53.3
== END 2024-10-18 11:17 | disposition home or self-care (01) ==
PROVIDERS: Visit Provider Physical Medicine & Rehabilitation
DX: M53.3 Sacrococcygeal disorders, not elsewhere classified (principal)
CPT/HCPCS: 99203

== ENCOUNTER → 2024-10-18 10:44 | Outpatient (BNVA) | payer SELFPAY | PROVIDERS: Visit Provider Physical Medicine & Rehabilitation | DX: M53.3 Sacrococcygeal disorders, not elsewhere classified (principal) | CPT/HCPCS: 99202 ==

== ENCOUNTER 2024-12-04 15:36 | Outpatient (AMB) | payer MEDICAID, SELFPAY ==
--- OUTSIDE RECORDS SUMMARY | 2017-11-30 10:00 | XMS_ITS | Continuity of Care Document ---
Author Organization [facility] Address [address] [facility] [place] [address] Phone Care Team Providers Care Software Support Technician Name Role Phone Lakhwinder Schilling MD Unavailable Unavailabl e Allergies, Adverse Reactions, Alerts Substance Reaction Status Criticality No Known Allergies Active No Inform ation Medications Medication Instructions Dosage Effective Dates (start - stop) Status Comments TOPIRAMATE (unknown strength) Not Available - Active Procedures Procedure Date No Charge For Services Sngl/mx Inj Scleros-veins; Marie 18 Sngl/mx Inj Scleros-veins; Marie 18 Offic Cons New/estab Mod 40 Mi 18 Duplex Scan-extrem Veins; Comp 18 Advance Directives Directive Yes / No Effective Date File Name No Information Encounters Encounter Description Practice Location Reason(s) For Visit Diagnoses Date Provider Providers Copied on Encounter [facility], [address] [facility] [facility] [address], [place], [place], [id number], [place] tel:[phone] [facility] - [facility] No Information Shakir Keane. [address], [address], [place], [address], [place]. tel:[phone] Referring Provider: Jhonny Carvalho MD, [address], [place], [address]. tel:[phone] [facility], [address] [place] [address], [id number], [place] tel:[phone] [place] - [place] [facility] [place] [facility] ([place]) Shakir Keane. [address], [address], [place], [address], [place]. [phone] Referring Provider: Jhonny Carvalho MD, [address], [place], [address]. tel:[phone] [facility], [address] [facility] [facility] [address] [facility] [address], [place], [place], [id number], [place] tel:[phone] [place] - [place] [facility] - ([place]) Shakir Keane. [address], [address], [place], [address], [place]. [phone] Referring Provider: Jhonny Carvalho MD, [address], [place], [address]. tel:[phone] Offic [facility] Mod 40 Dc [facility], [address] [facility] [address], [place], [place], [id number], [place] tel:[phone] [place] - [place] [facility] - ([place]) Shakir Keane. [address], [address], [place], [address], [place]. tel:[phone] Referring Provider: Jhonny Carvalho MD, [address], [place], [address]. tel:[phone] [facility], [address] [facility] [facility] [address], [place], [place], [id number], [place] tel:[phone] [place] - [place] Body mass index (BMI) 25.0-25.9, adultSpider Veins - ([place])Pain in right legPain in left leg Shakir Keane. [address], [address], [place], [address], [place]. tel:[phone] Referring Provider: Jhonny Carvalho MD, [address], [place], [address]. tel:[phone] Family History Family Member Type Diagnosis Age At Onset No Information Payers Payer name Insurance type Covered constitution party ID Authoriza tion(s) No Information Social History Type Description Quantity Date Captured Comments Sex Female Smoking Status No Information Chief Complaint And Reason For Visit No Information Reason For Referral Reason For Referral No Information Plan Of Treatment Date Type Action Status Goal Diet education completed History Of Present Illness Encounter Date Complaint History Of Prese nt Illness No Information Functional Status Date Functional Assessmen t No Information Instructions Date Instruction Additional Infor mation Giving Encouragement to Exercise Related to Body mass index (BMI) 25.0-25.9, adult Diet education Related to Body mass index (BMI) 25.0-25.9, adult Patient education booklet given Related to Spider Veins - ([place]) Continue compression stocking us e Related to Spider Veins - ([place]) Assessments Type Assessment Date No Information Patient Care Teams Name Effective Dates (start - stop) Status Members No Information
[2024-12-04 15:42] VITALS: BP 122/70; PULSE 103; TEMP 36.4; O2SAT 97; BMI 25.9
--- NOTE | 2024-12-04 15:42 | MHC.PC.OV ---
Vital Signs 12/04/24 15:42 Height 5 ft 7 in Weight 165 lb 6 oz BMI 25.9 BP 122/70 Blood Pressure Location Lt brachial Position Sitting Pulse 103 H Pulse Source Pulse Oximeter Temp 97.6 F Temp Source Oral Pulse Oximetry (%) 97 Oxygen Delivery Method Room Air Intake Visit Reasons: DIOGENES from [facility] Route Cdl Driver Required: No Accompanied by: Self / Same As Patient Allergies No Known Allergies Allergy (Mild, Verified 12/04/24 15:52) NKA Medication List - Last Reconciled 12/04/24 by MELITA Valderrama buspirone 5 mg PO BID cholecalciferol (vitamin D3) 25 mcg PO DAILY diazepam 5 mg PO DAILY PRN ibuprofen 600 mg PO Q8H PRN loratadine (Allergy Relief (loratadine)) 10 mg PO DAILY meclizine 25 mg PO TID PRN omeprazole 20 mg PO DAILY phentermine 15 mg PO DAILY sumatriptan succinate 50 mg PO .QD PRN 30 days topiramate 50 mg PO BEDTIME valacyclovir 1,000 mg PO DAILY Tobacco use date assessed: 12/04/24 Dental Screening Dental Screen Date: 12/04/24 Did you have a dental visit in the last 12 months?: No Did you have a dental problem in the last 6 months where you did not have access to dental care?: No Was dental information given to patient?: No HPI DIOGENES from [facility] HPI Details The patient is a 49-year-old female presenting with anxiety and weight management concerns.The patient is also here to transitioned care from Dr. Carvalho who retired 5 months ago. The patient reports significant anxiety and stress due to her 's recent diagnosis of lymphoma, which has required multiple hospitalizations. She has a history of using topiramate for migraine management, which was prescribed by a previous physician in [place]. The patient experiences insomnia, often feeling anxious and unable to sleep, which she attributes to her current stress levels. She has previously used medications such as Xanax for sleep, but is cautious about dependency. The patient reports weight gain, which she attributes to increased appetite during periods of anxiety. She has previously used phentermine for weight loss, which was effective, but there is concerns about its stimulant effects on her heart rate. [facility] Medical History Sacroiliac joint dysfunction of both sides Overweight with body mass index (BMI) of 25 to 25.9 in adult Oral lesion Bilateral knee pain Renal calculi Liver cyst Anxiety Hypertension Kidney stones Well woman exam with routine gynecological exam Acid reflux Palpitation Abdominal migraine Low back pain Sinusitis COVID-19 Surgical History Hx of cystoscopy History of tubal ligation History of pubovaginal sling Family History Mother No problems noted. Father No problems noted. Social History Housing: House Alcohol intake: current Alcohol intake frequency: holidays/special occasions only Alcohol type: wine Patient Tobacco Use Status: Never used Tobacco e-Cigarette/Vaping Use: Never Used Second Hand Smoke Exposure: No service: No Current occupational status: employed Current occupational exposures/hazards: No Gender identity: Female Cognitive needs: No Hearing needs: No Vision needs: No Female Reproductive History Menstrual Age of Menarche: 13 Questionnaire PHQ-9 Over the last 2 weeks, how often have you been bothered by any of the following problems? 1. Little interest or pleasure in doing things: not at all 2. Feeling down, depressed, or hopeless: not at all 3. Trouble falling or staying asleep, or sleeping too much: several days 4. Feeling tired or having little energy: several days 5. Poor appetite or overeating: several days 6. Feeling bad about yourself - or that you are a failure or have let yourself or your family down: not at all 7. Trouble concentrating on things, such as reading the newspaper or watching television: not at all 8. Moving or speaking so slowly that other people could have noticed. Or the opposite - being so fidgety or restless that you have been moving around a lot more than usual: not at all 9. Thoughts that you would be better off or of hurting yourself in some way: not at all Total score: 3 Source: Developed by Drs. Rickey Ellis, Diane De Jesus, Hussein Johnson and colleagues, with an educational you from [employer]. Thrive Questionnaire Date Thrive assessed: 06/29/24 I am a: Patient What is your living situation today?: I have a steady place to live Within the past 12 months, did the food you bought not last and you didn't have the money to get more?: Never true Within the past 12 months, did you worry whether your food would run out before you got money to buy more?: Never true Do you have trouble paying for medicines?: No Do you have trouble getting transportation to medical appointments?: No Do you have trouble paying your heating and electricity bill?: No Do you have trouble taking care of your child, family member or friend?: No Do you have trouble with day-to-day activities such as bathing, preparing meals, shopping, managing finances, etc.?: No Are you currently unemployed and looking for a job?: No Are you interested in more education?: No Please select the resources that you would like help with: None Currently or been in a relationship where the following occur: No concerns reported THRIVE Score: 0 AUDIT C Alcohol Use Questionnaire (AUDIT-C) 1. How often do you have a drink containing alcohol?: Never Total Score: 0 AFRICA-7 AMB Questionnaire AFRICA-7 Date AFRICA - 7 assessed: 06/29/24 Feeling nervous, anxious, or on edge: 1 = Several days Not being able to stop or control worryin = Several days Worrying too much about different things: 0 = Not at all Trouble relaxin = Several days Being so restless that it is hard to sit still: 0 = Not at all Becoming easily annoyed or irritable: 1 = Several days Feeling afraid as if something awful might happen: 0 = Not at all Total AFRICA-7 score (0-4 normal; 5-9 mild; 10-14 moderate; 15-21 severe): 4 Source: Developed by Drs. Rickey Ellis, Diane De Jesus, Hussein Johnson and colleagues, with an educational you from [employer] Review of Systems Const Reports difficulty sleeping, Reports headache(s) and Reports weight gain Eyes Denies loss of vision ENT Denies vertigo, Denies dizziness, Reports headache(s) and Denies sore throat Card Denies chest pain, Denies leg edema and Denies lightheadedness Resp Denies cough, Denies hemoptysis and Denies wheezing GI Denies abdominal pain, Denies melena, Denies constipation, Denies diarrhea and Denies vomiting Denies urinary frequency, Denies dysuria and Denies urinary urgency Musc Denies arthralgias, Denies joint swelling, Denies numbness and Denies tingling Skin/Breast Denies lesions and Denies rash Neuro Denies Abnormal speech present, Denies behavioral changes, Denies vertigo, Denies dizziness, Reports headache(s), Denies loss of vision, Denies memory loss, Denies numbness and Denies tingling Psych Reports anxiety, Denies behavioral changes, Denies depression, Denies memory loss and Denies panic attacks Henri/Lymph Denies easy bleeding and Denies easy bruising Aller/Immun Denies wheezing Physical exam (Primary Care) Vital Signs: Last Vital Signs Pulse 103 H 12/04/24 15:42 BP 122/70 12/04/24 15:42 Pulse Ox 97 12/04/24 15:42 Oxygen Delivery Method Room Air 12/04/24 15:42 BMI result Body Mass Index 25.9 Tobacco/Smoking Status: Tobacco use Status Tobacco use date assessed 12/04/24 12/04/24 15:49 Patient Tobacco Use Status Never used Tobacco 12/04/24 15:49 e-Cigarette/Vaping Use Never Used 12/04/24 15:49 PHQ-9: PHQ-9 Score PHQ-9: Total score 3 12/04/24 16:10 Thrive Assessment: Date of Thrive Assessment Date Thrive assessed 06/29/24 12/04/24 15:49 Currently or been in a relationship where the following occur: No concerns reported Const General: healthy appearing, no acute distress, alert and awake Nutritional Appearance: well nourished Orientation/consciousness: oriented to person, oriented to place and oriented to time HENMT Ears: TM's normal bilaterally General nose exam: Normal nasal mucous membranes and turbinates present Eyes Conjunctivae: conjunctivae normal Sclerae: sclerae normal Pupils: Equal, round and reactive pupils present Neck Neck: Yes no lymphadenopathy and Yes no JVD Thyroid: Thyroid normal Carotids: no bruits Resp Effort & Inspection: normal respiratory effort and not tachypneic Auscultation: no crackles, no rales, no rhonchi and no wheezes Cardio Rate: regular rate Rhythm: regular rhythm Heart sounds: no murmurs and normal S1 and S2 GI Palpation (GI): Soft to palpation, nontender, no hepatomegaly and no splenomegaly Auscultation: normal bowel sounds Skin General skin exam: no rashes or lesions noted and dry skin Neuro General: oriented to person, oriented to place and oriented to time Cranial nerves: Yes Equal, round and reactive pupils present Speech: No Abnormal speech present Gait exam (Neuro): Normal gait present Motor exam (neuro): no tremor noted Extrem Right upper extremity: full ROM Left upper extremity: full ROM Right lower extremity: full ROM; no edema Left lower extremity: full ROM; no edema Psych Mental Status: mental status grossly normal Speech and movement: Normal speech and movement present Affect: normal affect Attitude: cooperative Thought process: Normal thought process present Coding Level of Care Code Est Pt Level 4 (17067) Diagnoses Anxiety F41.9 Hypertension I10 Overweight with body mass index (BMI) of 25 to 25.9 in adult E66.3; Z68.25 Migraine with status migrainosus, not intractable, unspecified migraine type G43.901 Migraine type: unspecified Status migrainosus presence: with status migrainosus Intractability: not intractable Weight gain R63.5 Time Spent (min) 42 Assessment & Plan Assessment & Plan (1) Anxiety: Code(s): F41.9 - Anxiety disorder, unspecified Category: Medical (2) Hypertension: Code(s): I10 - Essential (primary) hypertension Category: Medical (3) Overweight with body mass index (BMI) of 25 to 25.9 in adult: Code(s): E66.3 - Overweight; Z68.25 - Body mass index [BMI] 25.0-25.9, adult Category: Medical (4) Migraine headache: Code(s): G43.909 - Migraine, unspecified, not intractable, without status migrainosus Category: Medical Qualifiers: Migraine type: unspecified Status migrainosus presence: with status migrainosus Intractability: not intractable Qualified Code(s): G43.901 - Migraine, unspecified, not intractable, with status migrainosus (5) Weight gain: Code(s): R63.5 - Abnormal weight gain Category: Medical Plan Plan Patient was informed and verbally consented to the use of an ambient scribe for clinic note documentation during this visit. 1. Anxiety The patient is experiencing significant anxiety due to her 's medical condition and is seeking management options. Buspirone was discussed as a potential treatment to manage anxiety without causing drowsiness, with a plan to titrate the dosage as needed. 2. Migraine The patient has a history of migraines, managed with topiramate, and reports sensitivity to light and sound during episodes. A referral to a neurologist for potential Botox injections was discussed to provide long-term relief. 3. Insomnia The patient reports insomnia related to anxiety and has previously used Xanax for sleep. She is cautious about dependency and is exploring alternative treatments for better sleep management. 4. Weight Gain The patient is concerned about weight gain due to increased appetite from anxiety. Phentermine was discussed as a potential option for appetite suppression, with consideration of its effects on heart rate. Orders: Orders Complete Blood Count Auto Diff Today E66.3 - Overweight, F41.9 - Anxiety disorder, unspecified, G43.909 - Migraine, unspecified, not intractable, without status migrainosus, I10 - Essential (primary) hypertension, Z00.00 - Encounter for general adult medical examination without abnormal findings, Z68.25 - Body mass index [BMI] 25.0-25.9, adult Lipid Panel Today E66.3 - Overweight, F41.9 - Anxiety disorder, unspecified, G43.909 - Migraine, unspecified, not intractable, without status migrainosus, I10 - Essential (primary) hypertension, Z00.00 - Encounter for general adult medical examination without abnormal findings, Z68.25 - Body mass index [BMI] 25.0-25.9, adult TSH reflex Free T4 Today E66.3 - Overweight, F41.9 - Anxiety disorder, unspecified, G43.909 - Migraine, unspecified, not intractable, without status migrainosus, I10 - Essential (primary) hypertension, Z00.00 - Encounter for general adult medical examination without abnormal findings, Z68.25 - Body mass index [BMI] 25.0-25.9, adult Vitamin D 25-OH Total Today E66.3 - Overweight, F41.9 - Anxiety disorder, unspecified, G43.909 - Migraine, unspecified, not intractable, without status migrainosus, I10 - Essential (primary) hypertension, Z00.00 - Encounter for general adult medical examination without abnormal findings, Z68.25 - Body mass index [BMI] 25.0-25.9, adult Comprehensive [place]. Panel Fast Today E66.3 - Overweight, F41.9 - Anxiety disorder, unspecified, G43.909 - Migraine, unspecified, not intractable, without status migrainosus, I10 - Essential (primary) hypertension, Z00.00 - Encounter for general adult medical examination without abnormal findings, Z68.25 - Body mass index [BMI] 25.0-25.9, adult UA CC w/rflx Micro + Cult Today E66.3 - Overweight, F41.9 - Anxiety disorder, unspecified, G43.909 - Migraine, unspecified, not intractable, without status migrainosus, I10 - Essential (primary) hypertension, Z00.00 - Encounter for general adult medical examination without abnormal findings, Z68.25 - Body mass index [BMI] 25.0-25.9, adult Referrals Neurology Referral G43.901 - Migraine, unspecified, not intractable, with status migrainosus Medications: New buspirone 5 mg PO BID 60 tabs 3RF phentermine must administer 2 hours after breakfast 15 mg PO DAILY 30 caps 0RF topiramate 50 mg PO BEDTIME 90 tabs 3RF loratadine (Allergy Relief (loratadine)) 10 mg PO DAILY 30 caps 2RF Changed From sumatriptan succinate 50 mg PO .QD PRN 10 tabs 0RF migraine headache To sumatriptan succinate 50 mg PO .QD PRN 10 tabs 3RF migraine headache 30 days
--- OUTSIDE RECORDS SUMMARY | 2024-12-04 16:37 | XMS_ITS | Clinical Summary ---
Author Organization [facility] Address [address] [place] [id number] Phone Care Team Providers Care [employer] Name Role Phone Jhonny Carvalho MD Primary Care Provider [phone] Medications erythromycin (ROMYCIN) ophthalmic ointment 5 Active RESTASIS 0.05 % suspension 1 drop 2 (two) times a day. 5 Active diazePAM (VALIUM) 5 MG tablet Take 1 tablet by mouth once as needed for anxiety. 5 Active tretinoin (RETIN-A) 0.025 % cream PLEASE SEE ATTACHED FOR DETAILED DIRECTIONS 5 Active Social History Tobacco Use Types Packs/Day Years Used Date Smoking Tobacco: Never Assessed Education Answer Date Recorded Are you interested in more education? Not on mady e 03/22/2024 Are you concerned about learning? Not on file 03/22/2024 No 03/22/2024 No 03/22/2024 Digital Access Answer Date Recorded No 03/22/2024 No 03/22/2024 Reliable internet access at home? Not on file 03/22/2024 Device with a working camera? Not on file Comments Unknown Sex and Gender Information Value Date Recorded Sex Assigned at Female 03/14/2024 3:11 PM EST Legal Sex Female 3:04 PM EST Gender Identity Female 03/14/2024 3:11 PM EST Sexual Orientation Straight 03/14/2024 3: 11 PM EST Plan of Treatment Health Maintenance Due Date Last Done Comments Adult Td,Tdap Booster 1975 LIPID PANEL 1975 DEPRESSION SCREENING 1987 SMOKING Hx and SMOKELESS TOB ACCO SCREENING 01/03/1988 HEPATITIS C SCREENING 1993 HIV ONE-TIME SCREENING (18-6 5 YEARS) 1993 PAP SMEAR 01/03/1996 MAMMOGRAM 2015 COLOGUARD 01/03/2020 COLONOSCOPY 01/03/2020 COLORECTAL CANCER SCREENING 01/03/2020 FIT TEST 01/03/2020 FOBT 01/03/2020 SIGMOIDOSCOPY 01/03/2020 VIRTUAL COLONOSCOPY 01/03/2020 COVID-19 VACCINE ( - 2023-2 5 season) 2023 HEPATITIS A VACCINES Aged Out No long er eligible based on patient's age to complete this topic HIB VACCINES Aged Out No longer eligi ble based on patient's age to complete this topic MENINGOCOCCAL VACCINES (ACWY) Aged Out No longer eligible based on patient's age to complete this topic MENINGOCOCCAL VACCINES (B) Aged Out N o longer eligible based on patient's age to complete this topic PNEUMOCOCCAL VACCINES (0-49 years) Aged Out No longer eligible based on patient's age to complete this topic Medical Devices Not on file Care Teams [employer] Relationship Specialty Start Date End Date Jhonny Carvalho MD [address] [place] [address] [place] [address] PCP - General Internal Medicine 03/14/24 Additional Source Comments The information contained in this document represents components of the legal health record. It is not the complete legal health record.[facility]
== END 2024-12-04 16:31 | disposition home or self-care (01) ==
LOC: HO.HMCH 15:37
DX: I10 Essential (primary) hypertension (principal); E66.3 Overweight; Z68.25 Body mass index [BMI] 25.0-25.9, adult; F41.9 Anxiety disorder, unspecified; G43.901 Migraine, unspecified, not intractable, with status migrainosus; R63.5 Abnormal weight gain

== ENCOUNTER → 2024-12-04 15:36 | Outpatient (BNVA) | payer OTHER, SELFPAY | DX: I10 Essential (primary) hypertension (principal); G47.00 Insomnia, unspecified; F41.9 Anxiety disorder, unspecified; G43.901 Migraine, unspecified, not intractable, with status migrainosus; E66.3 Overweight; Z68.25 Body mass index [BMI] 25.0-25.9, adult | CPT/HCPCS: 99212 ==

== ENCOUNTER 2025-01-08 15:51 | Outpatient (AMB) | payer OTHER, SELFPAY ==
[2025-01-08 15:56] VITALS: BP 138/72; PULSE 77; RESP 18; TEMP 36.4; O2SAT 98; BMI 24.9
--- NOTE | 2025-01-08 15:56 | A.OFFPC_ITS ---
Vital Signs 01/08/25 15:56 Height 5 ft 7 in Weight 159 lb 4 oz BMI 24.9 BP 138/72 Blood Pressure Location Lt brachial Position Sitting Respiration 18 Pulse 77 Pulse Source Pulse Oximeter Temp 97.5 F Temp Source Temporal Artery Scan Pulse Oximetry (%) 98 Oxygen Delivery Method Room Air Intake Visit Reasons: anxiety/migraine/weight loss Sewer Required: No Accompanied by: Self / Same As Patient Allergies No Known Allergies Allergy (Mild, Verified 01/08/25 16:24) NKA Medication List - Last Reconciled 01/08/25 by MELITA Valderrama buspirone 5 mg PO BID cholecalciferol (vitamin D3) 25 mcg PO DAILY diazepam 5 mg PO DAILY PRN ibuprofen 600 mg PO Q8H PRN loratadine (Allergy Relief (loratadine)) 10 mg PO DAILY meclizine 25 mg PO TID PRN omeprazole 20 mg PO DAILY phentermine 15 mg PO DAILY sumatriptan succinate 50 mg PO .QD PRN 30 days topiramate 50 mg PO BEDTIME valacyclovir 1,000 mg PO DAILY Tobacco use date assessed: 01/08/25 Dental Screening Dental Screen Date: 01/08/25 Did you have a dental visit in the last 12 months?: Yes Did you have a dental problem in the last 6 months where you did not have access to dental care?: No Was dental information given to patient?: Patient has dentist HPI anxiety/migraine/weight loss HPI Details The patient is a 50-year-old female presenting with obesity management. She started phentermine 8 days ago and has lost 5 pounds without experiencing any side effects. The patient requests a refill of the medication. The patient has a history of hypercholesterolemia, and recent labs were not completed due to personal commitments. She plans to complete fasting labs soon to monitor cholesterol levels. Anxiety has been a concern, but the patient reports improvement with current medication, experiencing no side effects. She also reports improved sleep quality, stating she falls asleep quickly and sleeps through the night. The patient experiences migraines and has been referred to neurology for further management. [facility] Medical History Sacroiliac joint dysfunction of both sides Overweight with body mass index (BMI) of 25 to 25.9 in adult Oral lesion Bilateral knee pain Renal calculi Liver cyst Anxiety Hypertension Kidney stones Well woman exam with routine gynecological exam Acid reflux Palpitation Abdominal migraine Low back pain Sinusitis COVID-19 Surgical History Hx of cystoscopy History of tubal ligation History of pubovaginal sling Family History Mother No problems noted. Father No problems noted. Social History Housing: House Alcohol intake: current Alcohol intake frequency: holidays/special occasions only Alcohol type: wine Patient Tobacco Use Status: Never used Tobacco e-Cigarette/Vaping Use: Never Used Second Hand Smoke Exposure: No service: No Current occupational status: employed Current occupational exposures/hazards: No Gender identity: Female Cognitive needs: No Hearing needs: No Vision needs: No Female Reproductive History Menstrual Age of Menarche: 13 Questionnaire Thrive Questionnaire Date Thrive assessed: 12/04/24 I am a: Patient What is your living situation today?: I have a steady place to live Within the past 12 months, did the food you bought not last and you didn't have the money to get more?: Never true Within the past 12 months, did you worry whether your food would run out before you got money to buy more?: Never true Do you have trouble paying for medicines?: No Do you have trouble getting transportation to medical appointments?: No Do you have trouble paying your heating and electricity bill?: No Do you have trouble taking care of your child, family member or friend?: No Do you have trouble with day-to-day activities such as bathing, preparing meals, shopping, managing finances, etc.?: No Are you currently unemployed and looking for a job?: No Are you interested in more education?: No Please select the resources that you would like help with: None Currently or been in a relationship where the following occur: No concerns reported THRIVE Score: 0 AFR[place]-7 AMB Questionnaire AFRICA-7 Date AFR[place] - 7 assessed: 06/29/24 Source: Developed by Drs. Rickey Ellis, Diane De Jesus, Hussein Johnson and colleagues, with an educational you from [employer]. Review of Systems Const Denies body aches, Denies chills, Denies fever(s), Reports headache(s) and Denies poor appetite Eyes Reports no additional complaints ENT Denies dysphagia, Denies dizziness, Reports headache(s) and Denies odynophagia Card Denies chest pain, Denies syncope, Denies edema, Denies irregular heart rhythm, Denies lightheadedness and Denies dyspnea Resp Denies cough and Denies dyspnea GI Denies abdominal pain, Denies constipation, Denies dysphagia, Denies diarrhea, Denies nausea, Denies odynophagia and Denies vomiting Reports no additional complaints Musc Reports no additional complaints and Denies abnormal gait Skin/Breast Reports system reviewed and no additional complaints, except as documented Neuro Denies abnormal gait, Denies dizziness, Denies syncope and Reports headache(s) Psych Reports anxiety Physical exam (Primary Care) Vital Signs: Last Vital Signs Temp 97.5 F 01/08/25 15:56 Pulse 77 01/08/25 15:56 Resp 18 01/08/25 15:56 BP 138/72 01/08/25 15:56 Pulse Ox 98 01/08/25 15:56 Oxygen Delivery Method Room Air 01/08/25 15:56 BMI result Body Mass Index 24.9 Tobacco/Smoking Status: Tobacco use Status Tobacco use date assessed 01/08/25 01/08/25 15:58 Patient Tobacco Use Status Never used Tobacco 01/08/25 15:58 e-Cigarette/Vaping Use Never Used 01/08/25 15:58 Thrive Assessment: Date of Thrive Assessment Date Thrive assessed 12/04/24 01/08/25 15:58 Currently or been in a relationship where the following occur: No concerns reported Const General: cooperative, healthy appearing, comfortable and no acute distress Orientation/consciousness: patient oriented x3 HENMT Head: Yes normocephalic Ears: hearing grossly normal bilaterally General nose exam: Normal external nose present Eyes General: appearance normal, both eyes and all related structures Conjunctivae: conjunctivae normal Neck Neck: Yes full ROM and Yes no lymphadenopathy Resp Effort & Inspection: normal respiratory effort Auscultation: clear to auscultation bilaterally, no crackles, no rales, no rhonchi and no wheezes Cardio Rate: regular rate Rhythm: regular rhythm General: Yes no CVA tenderness Back/Spine/Pelvis Back: no CVA tenderness Skin General skin exam: no rashes or lesions noted Neuro General: patient oriented x3 and no focal motor deficits Cranial nerves: Yes Nystagmus not present Gait exam (Neuro): Normal gait present Motor exam (neuro): 5/5 motor strength present throughout Extrem General: Yes normal to inspection, Yes full ROM and No edema Psych Affect: normal affect Attitude: cooperative Insight: Good insight present (Psych) Judgement: Good judgement present (Psych) Coding Level of Care Code Est Pt Level 3 (95173) Diagnoses Anxiety F41.9 Hypertension, unspecified type I10 Hypertension type: unspecified Overweight with body mass index (BMI) of 25 to 25.9 in adult E66.3; Z68.25 Migraine with status migrainosus, not intractable, unspecified migraine type G43.901 Intractability: not intractable Migraine type: unspecified Status migrainosus presence: with status migrainosus Hyperlipidemia, unspecified hyperlipidemia type E78.5 Hyperlipidemia type: unspecified Vitamin D deficiency E55.9 Heartburn R12 Time Spent (min) 34 Assessment & Plan Assessment & Plan (1) Anxiety: Comment: stable; cont same rx Code(s): F41.9 - Anxiety disorder, unspecified Category: Medical Plan: Encouraged CBT Continue buspirone 5 mg b.i.d., diazepam 5 mg daily p.r.n. Denies SI/HI (2) Hypertension: Code(s): I10 - Essential (primary) hypertension Category: Medical Qualifiers: Hypertension type: unspecified Qualified Code(s): I10 - Essential (primary) hypertension Plan: 138/72 goal is systolic less than 130 mm hg Reinforced low salt diet Continue to monitor (3) Overweight with body mass index (BMI) of 25 to 25.9 in adult: Code(s): E66.3 - Overweight; Z68.25 - Body mass index [BMI] 25.0-25.9, adult Category: Medical Plan: The patient has been prescribed phentermine for weight management and has reported a 5-pound weight loss in 8 days without side effects. A refill of the medication was requested and agreed upon. (4) Migraine headache: Code(s): G43.909 - Migraine, unspecified, not intractable, without status migrainosus Category: Medical Qualifiers: Intractability: not intractable Migraine type: unspecified Status migrainosus presence: with status migrainosus Qualified Code(s): G43.901 - Migraine, unspecified, not intractable, with status migrainosus Plan: The patient experiences migraines and has been referred to neurology for further management. Continue ibuprofen 600 mg q.8 hours p.r.n., toipramate 50 mg po bedtime, sumatriptan succinate 50 mg QD PRN (5) HLD (hyperlipidemia): Code(s): E78.5 - Hyperlipidemia, unspecified Category: Medical Qualifiers: Hyperlipidemia type: unspecified Qualified Code(s): E78.5 - Hyperlipidemia, unspecified Plan: Encouraged the patient to complete preordered labs as soon as possible Reinforced low-cholesterol diet and activity as tolerated (6) Vitamin D deficiency: Code(s): E55.9 - Vitamin D deficiency, unspecified Category: Medical Plan: Continue cholecalciferol 25 mcg daily (7) Heartburn: Code(s): R12 - Heartburn Category: Medical Plan: Reinforced dietary restrictions Continue omeprazole 20 mg daily Medications: Refilled 2 phentermine must administer 2 hours after breakfast 15 mg PO DAILY 30 caps 0RF
--- OUTSIDE RECORDS SUMMARY | 2025-01-08 18:47 | XMS_ITS | Clinical Summary ---
Author Organization [facility] Address [address] [place] [id number] Phone Care Team Providers Care Sign Language Translator Name Role Phone Jhonny Carvalho MD Primary Care Provider [phone] Medications erythromycin (ROMYCIN) ophthalmic ointment 5 Active [...] FOBT 01/03/2020 SIGMOIDOSCOPY 01/03/2020 VIRTUAL COLONOSCOPY 01/03/2020 INFLUENZA VACCINE (#1) 2024 COVID-19 VACCINE (1 - 2024-2 6 season) 2024 PNEUMOCOCCAL VACCINES (50+ y ears) (1 of 1 - PCV) 2025 ZOSTER VACCINES (1 of 2) 2025 RSV VACCINE (1 - 1-dose 75+ series) 2050 HEPATITIS A VACCINES Aged Out No long [...] Medical Devices Not on file Care Teams Sign Language Translator Relationship Specialty Start Date End Date Jhonny Carvalho MD [address] [place] [address] [place] [id number] PCP - General Internal Medicine 03/14/24 Additional Source Comments The information contained in this document represents components of the legal health record. It is not the complete legal health record.[facility]
== END 2025-01-08 16:39 | disposition home or self-care (01) ==
LOC: HO.HMCH 15:52
DX: F41.9 Anxiety disorder, unspecified (principal); I10 Essential (primary) hypertension; E66.3 Overweight; Z68.25 Body mass index [BMI] 25.0-25.9, adult; G43.901 Migraine, unspecified, not intractable, with status migrainosus; E78.5 Hyperlipidemia, unspecified; E55.9 Vitamin D deficiency, unspecified; R12 Heartburn

== ENCOUNTER → 2025-01-08 15:51 | Outpatient (BNVA) | payer OTHER, SELFPAY | DX: I10 Essential (primary) hypertension (principal); E66.3 Overweight; E78.00 Pure hypercholesterolemia, unspecified; F41.9 Anxiety disorder, unspecified; G43.901 Migraine, unspecified, not intractable, with status migrainosus; E78.5 Hyperlipidemia, unspecified; E55.9 Vitamin D deficiency, unspecified; R12 Heartburn; Z68.25 Body mass index [BMI] 25.0-25.9, adult; Z79.899 Other long term (current) drug therapy; Z68.24 Body mass index [BMI] 24.0-24.9, adult | CPT/HCPCS: 99212 ==